=== PATIENT | female | born 1950 | race Caucasian/White ===

== ENCOUNTER 2016-05-07 19:12 | Inpatient (IN) | payer OTHER ==
[~2016-05-07] VITALS: Ht 157.5 cm; Wt 100.0 kg
[2016-05-07 20:19] LABS: BASOPHILS % 0.4 % (0.0-2.0); EOSINOPHILS # 0.2 10^3/ul (0.0-0.5); EOSINOPHILS % 3.3 % (0.0-7.0); HEMATOCRIT 38.5 % (37.0-47.0); HEMOGLOBIN 12.8 g/dl (12.0-16.0); LYMPHOCYTES # 1.9 10^3/ul (0.8-2.9); LYMPHOCYTES % 27.8 % (15.0-51.0); MEAN CORPUSCULAR HEMOGLOBIN 27.7 pg (29.0-33.0); MEAN CORPUSCULAR HGB CONC 33.4 g/dl (32.0-37.0); MEAN CORPUSCULAR VOLUME 82.9 fl (82.0-101.0); MONOCYTE # 0.4 10^3/ul (0.3-0.9); MONOCYTES % 6.3 % (0.0-11.0); NEUTROPHIL # 4.2 10^3/ul (1.6-7.5); NEUTROPHILS % 62.2 % (39.0-77.0); PLATELET COUNT 249 10^3/UL (140-440); RED BLOOD COUNT 4.64 10^6/ul (4.20-5.40); RED CELL DISTRIBUTION WIDTH 13.3 % (11.5-14.5); UNCORRECTED WBC 6.8 10^3/ul (4.8-10.8); WHITE BLOOD COUNT 6.8 10^3/ul (4.8-10.8)
[2016-05-07 20:20] LABS: CONDITION 1
[2016-05-07] MEDS ORDERED: METF1000 PO (20:24)
[2016-05-07] MEDS ORDERED: GLIP-95 PO (20:24)
[2016-05-07] MEDS ORDERED: LANT3I SC (20:25)
[2016-05-07] MEDS ORDERED: ATOR10TA65 PO (20:25)
[2016-05-07] MEDS ORDERED: ASPI-664 PO (20:25)
--- NOTE | 2016-05-07 20:29 | ERA ---
ER Documentation Chief Complaint Date/Time DATE: 05/07/16 TIME: 20:25 Chief Complaint Dizziness HPI The patient is a 66-year-old female, presenting to the ER because of dizziness, headache, left eye pain and pressure for 11 days. She was seen at [place] [facility] 8 days ago when she had a normal head CT. She was seen again today at [place] [facility] and had another normal head CT. She was sent to [facility] ER for further evaluation because of persistent headache. He complains of triple vision from the left eye where she had dizziness. She denies facial pain, neck pain, chest pain, dyspnea, abdominal pain, vomiting, diarrhea, constipation. She does not smoke does not drink Past medical history: Diabetes mellitus Past medical history: Ventral herniorrhaphy, abdominoplasty ROS All systems reviewed and are negative except as per history of present illness. Medications Home Meds Reported Medications Aspirin* (Aspirin* EC) 81 Mg Tablet.dr, 81 MG PO DAILY, TAB 05/07/16 Atorvastatin Calcium (Atorvastatin Calcium) 10 Mg Tablet, 10 MG PO QHS, #30 TAB 05/07/16 Insulin Glargine* (Lantus*) 100 Unit/Ml Soln, 30 UNIT SC QAM, #1 VIAL 05/07/16 Glipizide* (Glipizide*) 10 Mg Tablet, 10 MG PO AC BREAKFAST DINNER, TAB 05/07/16 Metformin Hcl* (Metformin Hcl*) 1,000 Mg Tablet, 1000 MG PO WITH BREAKFAST, #30 TAB 05/07/16 Allergies Allergies: Coded Allergies: No Known Allergy (Unverified , 05/07/16) PMhx/Soc History of Surgery: Yes (umbilical hernia repair) Anesthesia Reaction: No Hx Neurological Disorder: No Hx Respiratory Disorders: No Hx Cardiac Disorders: No Hx Psychiatric Problems: No Hx Alcohol Use: No Hx Substance Use: No Hx Tobacco Use: No Smoking Status: Never smoker Physical Exam Vitals Vital Signs Date Time Temp Pulse Resp B/P Pulse Ox O2 Delivery O2 Flow Rate FiO2 05/07/16 19:29 69 13 124/57 100 Room Air 05/07/16 19:26 98.2 74 17 122/57 95 Physical Exam Const: No acute distress. Head: Atraumatic. Eyes: Normal Conjunctiva. Pupils are equally round and reactive to light , no eye entrapment ENT: Normal External Ears, Nose and Mouth. Neck: Full range of motion. No meningismus. Resp: Clear to auscultation bilaterally. Cardio: Regular rate and rhythm, no murmurs. Abd: Soft, non distended, normal bowel sounds, non tender. Skin: No petechiae or rashes. Back: No midline or flank tenderness. Ext: No cyanosis, or edema. Neur: Awake and alert. No focal deficit Psych: Normal Mood and Affect. Result Diagram: 05/07/161999 Results 24 hrs Laboratory Tests Test 05/07/16 20:00 Basophils # 0.010^3/ul Basophils % 0.4% Blood Morphology Comment Eosinophils # 0.210^3/ul Eosinophils % 3.3% Hematocrit 38.5% Hemoglobin 12.8g/dl Lymphocytes # 1.910^3/ul Lymphocytes % 27.8% Mean Corpuscular Hemoglobin 27.7pg Mean Corpuscular Hemoglobin Concent 33.4g/dl Mean Corpuscular Volume 82.9fl Mean Platelet Volume 10.0fl Monocytes # 0.410^3/ul Monocytes % 6.3% Neutrophils # 4.210^3/ul Neutrophils % 62.2% Nucleated Red Blood Cells # 0.010^3/ul Nucleated Red Blood Cells % 0.0/100WBC Platelet Count 39634^3/UL Red Blood Count 4.6410^6/ul Red Cell Distribution Width 13.3% White Blood Count 6.810^3/ul Procedures/MDM MEDICAL MAKING DECISION: The patient is a 66-year-old female, presenting to the ER because of intermittent dizziness associated with blurred vision. She will be admitted for further evaluation, including MRI of the brain. The differential diagnoses considered include but are not limited to central causes such as cerebellar infarct, cerebellar hemorrhage, cerebellar tumor, acoustic neuroma, peripheral causes such as benign positional vertigo, labyrinthitis, medication, Meniere's disease. Departure Diagnosis: Primary Impression: Dizziness Condition: Stable Comments I discussed the findings with the patient. I discussed the patient with the on- call hospitalist Dr. Mcduffie who was made aware of the lab, the treatment, the patient condition. The patient is admitted to the telemetry The patient's blood pressure was elevated (>120/80) but appears stable without evidence of hypertension emergency or urgency. The patient was counseled about the risks of hypertension and urged to pursue outpatient monitoring and therapy within a week after discharge with their primary care physician. KODY WAHL MD May 07, 2016 20:29
[2016-05-07] MEDS ORDERED: hydrALAzine 20 MG INJ IV PRN (20:30)
[2016-05-07] MEDS ORDERED: LORAZEPAM 2 MG INJ IV PRN (20:30)
[2016-05-07] MEDS ORDERED: ONDANSETRON 4 MG INJ IV PRN (20:30)
[2016-05-07] MEDS ORDERED: NITROGLYCERIN (SL) 0.4 MG TAB SL PRN (20:30)
[2016-05-07] MEDS ORDERED: NACL 0.9% 3 ML SYG IV SCH (20:30)
[2016-05-07 20:34] LABS: POTASSIUM 3.9 mmol/L (3.5-5.1)
[2016-05-07 20:37] LABS: CREATININE 0.59 mg/dl (0.44-1.00)
[2016-05-07] MEDS ORDERED: GLUCOSE GEL 15 GRAM TUBE BUCCAL PRN (21:00)
[2016-05-07] MEDS ORDERED: GLUCAGON 1 MG INJ IM PRN (21:00)
[2016-05-07] MEDS ORDERED: GLUCOSE GEL 15 GRAM TUBE PO PRN ×2 (21:00)
[2016-05-07] MEDS ORDERED: DEXTROSE 50% 50 ML SYRINGE IV PRN ×2 (21:00)
[2016-05-07 21:03] LABS: INR 0.91; PROTIME 12.2 Sec (12.2-14.2)
[2016-05-07 21:04] LABS: PARTIAL THROMBOPLASTIN TIME 28.4 Sec (25.0-35.0)
[2016-05-07 21:48] VITALS: PULSE 74
--- NOTE | 2016-05-07 22:05 | HP ---
Date/Time of Note Date/Time of Note DATE: 05/07/16 TIME: 21:29 Assessment/Plan VTE Prophylaxis VTE Prophylaxis Intervention: SCD's Assessment/Plan Assessment/Plan 66 yo female with past medical history type II DM, essential hypertension, who presents dizziness and diplopia. 1. Vertigo - CVA vs BPPV vs labyrinthitis vs other - will admit the patient to telemetry, fall risk precautions, neurovascular checks, MRI brain, MRA head/neck , TSH, vit b12/folate, ECHO, orthostatic vital signs, neuro c/s 2. Type II DM - uncontrolled - check Hgba1c, ISS, lantus, hold metformin/ glipizide 3. Essential Hypertension - hydralazine prn - new diagnosis - lisinopril if true hypertension 4. Dyslipidemia - continue with statin. 5. GI ppx - pepcid 6. DVT ppx - scds answered all of her questions. as per clinical course. this history and physical took greater then 45 minutes to complete HPI/ROS Admit Date/Time Admit Date/Time 05/07/2016, 9:29 pm Hx of Present Illness 66 yo female with past medical history type II DM, essential hypertension, who presents dizziness and diplopia. 8 days ago, she had gone to [facility] , she had similar episode, had a CT scan of brain that was negative. Labs at that time were negative. Subsequently, the patient's symptoms did not resolve, has orthostatic changes, headache, blurriness in vision, double vision, nausea with 3 episodes NBNB vomitus, constipation, and shortness of breath. Otherwise denies any palpitations, chest pain, syncopal episodes, no other constitutional symptoms. Patient was transferred here to [facility] for insurances. [facility]: Labs: Gluc: 332 CT brain: no acute intracranial hemorrhage, or other findings. ROS 14 point review of systems completed, please refer to HPI for any positive findings PMH/Family/Social Past Medical History Medical History: diabetes, hypertension Past Surgical History hernia repair Family History Significant Family History: hypertension (mother) Social History Alcohol Use: none Smoking Status: Never smoker Drug Use: none Exam/Review of Systems Vital Signs Vitals Vital Signs Date Time Temp Pulse Resp B/P Pulse Ox O2 Delivery O2 Flow Rate FiO2 05/07/16 21:00 72 16 118/54 94 Room Air 05/07/16 19:26 98.2 Exam Exam Gen Jacques: moderate distress 2/2 dizziness, AAOx4 HEENT: NC/AT, PERRLA, EOMI, no pharyngeal erythema, no tonsillar exudates, no lymphadenopathy, no JVD, no carotid bruits NECK: supple, no thyromegaly THORAX: symmetrical, no obvious deformities CV: S1S2, RRR, no M/G/R Lungs: CTAB no W/C/R/R Abd: soft, NT/ND, +BS, no rebound, no guarding, neg HSM EXT: no edema, no ecchymosis, no clubbing, FROM Neuro: CN II-XII grossly intact, cannot assess rhombergs, no nystagmus seen Psych: anxious Skin: C/D/I Labs Result Diagram: 05/07/16199905/07/161999 Medications Medications Current Medications Lorazepam (Ativan) 0.5 mg Q6H PRN IV ANXIETY; Start 05/07/16 at 20:30 Ondansetron HCl (Zofran Inj) 4 mg Q6H PRN IV NAUSEA AND/OR VOMITING; Start at 20:30 Aspirin (Aspirin) 81 mg DAILY PO ; Start 05/08/16 at 09:00 Nitroglycerin (Nitroglycerin (Sl Tab) 0.4 Mg) 1 tab Q5M PRN SL CHEST PAIN; Start 05/07/16 at 20:30 Acetaminophen (Tylenol Tab) 650 mg Q6H PRN PO PAIN LEVEL 1-3 OR FEVER; Start at 20:30 Morphine Sulfate (morphine) 2 mg Q4H PRN IV PAIN LEVEL 7-10; Start 05/07/16 at 20:30 Docusate Sodium (Colace) 100 mg Q12H PRN PO CONSTIPATION; Start 05/07/16 at 20: 30 Famotidine (Pepcid) 20 mg Q12 PO ; Start 05/07/16 at 21:00 Hydralazine HCl (Apresoline) 10 mg Q6H PRN IV sbp > 160; Start 05/07/16 at 20: 30 Atorvastatin Calcium (Lipitor) 10 mg QHS PO ; Start 05/07/16 at 21:00 Insulin Glargine (Lantus) 30 unit QAM SC ; Start 05/08/16 at 09:00 Diagnostic Test (Pha) (Accucheck) 1 ea 02 XX ; Start 05/08/16 at 02:00 Miscellaneous Information 1 ea NOTE XX ; Start 05/07/16 at 21:00 Glucose (Glutose) 15 gm Q15M PRN PO DECREASED GLUCOSE; Start 05/07/16 at 21:00 Glucose (Glutose) 22.5 gm Q15M PRN PO DECREASED GLUCOSE; Start 05/07/16 at 21: 00 Dextrose (D50w Syringe) 25 ml Q15M PRN IV DECREASED GLUCOSE; Start 05/07/16 at 21:00 Dextrose (D50w Syringe) 50 ml Q15M PRN IV DECREASED GLUCOSE; Start 05/07/16 at 21:00 Glucagon (Glucagen) 1 mg Q15M PRN IM DECREASED GLUCOSE; Start 05/07/16 at 21:00 Glucose (Glutose) 15 gm Q15M PRN BUCCAL DECREASED GLUCOSE; Start 05/07/16 at 21 :00 SHONDA ESPINOSA MD May 07, 2016 21:52
[2016-05-07 22:15] VITALS: BP 129/54; PULSE 69; RESP 18
[2016-05-07] MEDS: ATORVASTATIN 10 MG TAB PO SCH (22:17)
[2016-05-07] MEDS: FAMOTIDINE 20 MG TAB PO SCH (22:17)
[2016-05-07] MEDS: morphine 2 MG INJ IV PRN (22:19)
[2016-05-07 22:39] LABS: CREATINE KINASE 48 IU/L (23-200)
[2016-05-07 22:40] LABS: CHOL/HDL RATIO 4.1 RATIO; MAGNESIUM 1.8 mg/dl (1.7-2.5)
[2016-05-07 22:47] VITALS: Ht 157.5 cm; Wt 100.0 kg
[2016-05-07 22:48] LABS: CK-MB 0.61 ng/ml (0.0-2.4)
[2016-05-07 22:54] LABS: TROPONIN-I < 0.012 ng/ml (0.00-0.12)
[2016-05-07 23:11] LABS: THYROID STIMULATING HORMONE 0.471 MIU/L (0.465-4.680)
[2016-05-07 23:17] VITALS: BP 125/54; RESP 16
[2016-05-07] MEDS: INSULIN ASPART [NOVOLOG] 3 ML PEN SC SCH (23:42)
[2016-05-08] VITALS (12 sets, daily range): BP systolic 120–166; BP diastolic 57–75; PULSE 63–90; RESP 16–21
[2016-05-08] MEDS ORDERED: TRAM50TA2 PO (00:03)
[2016-05-08] MEDS: ACCUCHECK AT 2AM (Patients on SS coverage) XX SCH ×2 (02:10→21:20)
[2016-05-08 02:45] LABS: CREATINE KINASE 32 IU/L (23-200)
[2016-05-08 03:14] LABS: CK-MB 0.57 ng/ml (0.0-2.4); TROPONIN-I < 0.012 ng/ml (0.00-0.12)
[2016-05-08 07:08] LABS: BASOPHILS % 0.4 % (0.0-2.0); EOSINOPHILS # 0.2 10^3/ul (0.0-0.5); EOSINOPHILS % 3.5 % (0.0-7.0); HEMATOCRIT 37.1 % (37.0-47.0); HEMOGLOBIN 12.5 g/dl (12.0-16.0); LYMPHOCYTES # 1.8 10^3/ul (0.8-2.9); LYMPHOCYTES % 32.2 % (15.0-51.0); MEAN CORPUSCULAR HEMOGLOBIN 27.7 pg (29.0-33.0); MEAN CORPUSCULAR HGB CONC 33.7 g/dl (32.0-37.0); MEAN CORPUSCULAR VOLUME 82.3 fl (82.0-101.0); MEAN PLATELET VOLUME 9.8 fl (7.4-10.4); MONOCYTE # 0.4 10^3/ul (0.3-0.9); MONOCYTES % 6.7 % (0.0-11.0); NEUTROPHIL # 3.2 10^3/ul (1.6-7.5); NEUTROPHILS % 57.2 % (39.0-77.0); PLATELET COUNT 246 10^3/UL (140-440); RED BLOOD COUNT 4.51 10^6/ul (4.20-5.40); RED CELL DISTRIBUTION WIDTH 12.8 % (11.5-14.5); UNCORRECTED WBC 5.6 10^3/ul (4.8-10.8); WHITE BLOOD COUNT 5.6 10^3/ul (4.8-10.8)
[2016-05-08 07:09] LABS: POTASSIUM 4.1 mmol/L (3.5-5.1)
[2016-05-08 07:11] LABS: CREATININE 0.62 mg/dl (0.44-1.00)
[2016-05-08 07:12] LABS: CALCIUM 9.1 mg/dl (8.4-10.2)
[2016-05-08] MEDS ORDERED: MAGNESIUM SULFATE 2 GM/50 ML 50 ML IVPB ONE (07:30)
[2016-05-08 07:39] LABS: CONDITION 1
[2016-05-08] MEDS: ACETAMINOPHEN 325 MG TAB PO PRN ×2 (07:56→21:18)
[2016-05-08] MEDS: ASPIRIN 81 MG TAB PO SCH (08:53)
[2016-05-08] MEDS: FAMOTIDINE 20 MG TAB PO SCH ×2 (08:53→21:18)
[2016-05-08] MEDS: INSULIN GLARGINE [LANtus] 3 ML PEN SC SCH (08:55)
[2016-05-08] MEDS: INSULIN ASPART [NOVOLOG] 3 ML PEN SC SCH ×8 (08:56→21:00)
[2016-05-08] MEDS ORDERED: INSULIN GLARGINE [LANtus] 3 ML PEN SC SCH (09:00)
--- NOTE | 2016-05-08 11:35 | CONS ---
Date/Time of Note Date/Time of Note DATE: 05/08/16 TIME: 11:26 Assessment/Plan Assessment/Plan Chief Complaint/Hosp Course 66 year old female with history of uncontrolled diabetes, hypertension presenting with vertigo, blurred vision admitted for further work up. CTH on admission negative. Recommendations: -MRI Brain and MRA Head/Neck without contrast pending to evaluate for possible vascular event -suspect vestibular neuronitis -initiate meclizine 12.5 mg TID standing -tylenol prn headaches, if no improvement, trial of Toradol -ECHO pending -orthostatic vitals to be checked -check HBA1C, Lipid panel for optimization of risk factors -insulin being adjusted for more optimal control of diabetes -will continue to follow Problems: Consultation Date/Type/Reason Admit Date/Time 05/07/2016, 9:29 pm Date of Consultation: May 08, 2016 Type of Consultation: Neurology Reason for Consultation vertigo, blurred vision r/o CVA Referring Provider: SHONDA ESPINOSA MD Hx of Present Illness 66 year old female with PMHx of Type II DM, HTN presents with vertigo and blurred vision from left visual field with headache. Her symptoms began 8 days ago, she was evaluated at [place] [facility], CTH: negative and received blood work was discharged home. Her symptoms persisted, has episodes of vomiting and was transferred here for insurance purposes for further evaluation. She denies a previous history of stroke. headache vertigo blurred vision Past Medical History Medical History: diabetes, hypertension Past Surgical History Past Surgical Hx: no surgical history Family History Significant Family History: no pertinent family hx Social History Alcohol Use: none Smoking Status: Never smoker Drug Use: none Exam/Review of Systems Vital Signs Vitals Vital Signs Date Time Temp Pulse Resp B/P Pulse Ox O2 Delivery O2 Flow Rate FiO2 05/08/16 08:02 65 05/08/16 07:05 98.7 20 127/58 96 05/07/16 22:15 Room Air Intake and Output 05/07/16 05/07/16 05/08/16 15:00 23:00 07:00 Intake Total 480 ml Balance 480 ml Exam Constitutional: alert, distress, oriented Psych: no complaints Head: normocephalic, other Eyes: EOMI, PERRL, other (left field cut, poor cooperation) ENMT: other (tongue is swollen with abrasions ) Respiratory: normal air movement Neurological: other (visual bernard- possible left field cut, no significant facial asymmetry palate upgoing uvula tongue midline, no focal weakness in arms or legs, lifts both LE anti-gravity, no ataxia) Results Result Diagram: 05/08/16 0559 05/08/16 0559 Results 24 hrs Laboratory Tests Test 05/07/16 20:00 05/07/16 22:16 05/07/16 22:18 05/08/16 02:08 Activated Partial Thromboplast Time 28.4 Anion Gap 14 Basophils # 0.0 Basophils % 0.4 Blood Morphology Comment Blood Urea Nitrogen 14 Calcium Level 9.0 Carbon Dioxide Level 31 Chloride Level 98 Creatinine 0.59 Eosinophils # 0.2 Eosinophils % 3.3 Glucose Level 235 H Hematocrit 38.5 Hemoglobin 12.8 INR International Normalized Ratio 0.91 Lymphocytes # 1.9 Lymphocytes % 27.8 Mean Corpuscular Hemoglobin 27.7 L Mean Corpuscular Hemoglobin Concent 33.4 Mean Corpuscular Volume 82.9 Mean Platelet Volume 10.0 Monocytes # 0.4 Monocytes % 6.3 Neutrophils # 4.2 Neutrophils % 62.2 Nucleated Red Blood Cells # 0.0 Nucleated Red Blood Cells % 0.0 Platelet Count 249 Potassium Level 3.9 Prothrombin Time 12.2 Prothrombin Time Ratio 1.0 Red Blood Count 4.64 Red Cell Distribution Width 13.3 Sodium Level 139 White Blood Count 6.8 Bedside Glucose 273 H 308 H Cholesterol Level 150 Cholesterol/HDL Ratio 4.1 Creatine Kinase 48 Creatine Kinase Index 1.3 Creatinine Kinase MB (Mass) 0.61 HDL Cholesterol 36 Hemoglobin A1c 9.9 H LDL Cholesterol, Calculated 64 Magnesium Level 1.8 Thyroid Stimulating Hormone (TSH) 0.471 Triglycerides Level 249 H Troponin I < 0.012 Test 05/08/16 02:21 05/08/16 05:59 05/08/16 07:53 Creatine Kinase 32 Creatine Kinase Index 1.8 Creatinine Kinase MB (Mass) 0.57 Troponin I < 0.012 Anion Gap 13 Basophils # 0.0 Basophils % 0.4 Blood Morphology Comment Blood Urea Nitrogen 14 Calcium Level 9.1 Carbon Dioxide Level 31 Chloride Level 99 Creatinine 0.62 Eosinophils # 0.2 Eosinophils % 3.5 Glucose Level 234 H Hematocrit 37.1 Hemoglobin 12.5 Lymphocytes # 1.8 Lymphocytes % 32.2 Mean Corpuscular Hemoglobin 27.7 L Mean Corpuscular Hemoglobin Concent 33.7 Mean Corpuscular Volume 82.3 Mean Platelet Volume 9.8 Monocytes # 0.4 Monocytes % 6.7 Neutrophils # 3.2 Neutrophils % 57.2 Nucleated Red Blood Cells # 0.0 Nucleated Red Blood Cells % 0.0 Platelet Count 246 Potassium Level 4.1 Red Blood Count 4.51 Red Cell Distribution Width 12.8 Sodium Level 139 White Blood Count 5.6 Bedside Glucose 233 H Medications Medications Current Medications Lorazepam (Ativan) 0.5 mg Q6H PRN IV ANXIETY; Start 05/07/16 at 20:30 Ondansetron HCl (Zofran Inj) 4 mg Q6H PRN IV NAUSEA AND/OR VOMITING; Start at 20:30 Aspirin (Aspirin) 81 mg DAILY PO Last administered on 05/08/16 08:53; Admin Dose 81 MG; Start 05/08/16 at 09:00 Nitroglycerin (Nitroglycerin (Sl Tab) 0.4 Mg) 1 tab Q5M PRN SL CHEST PAIN; Start 05/07/16 at 20:30 Acetaminophen (Tylenol Tab) 650 mg Q6H PRN PO PAIN LEVEL 1-3 OR FEVER Last administered on 05/08/16 07:56; Admin Dose 650 MG; Start 05/07/16 at 20:30 Morphine Sulfate (morphine) 2 mg Q4H PRN IV PAIN LEVEL 7-10 Last administered on 05/07/16 22:19; Admin Dose 2 MG; Start 05/07/16 at 20:30 Docusate Sodium (Colace) 100 mg Q12H PRN PO CONSTIPATION; Start 05/07/16 at 20: 30 Famotidine (Pepcid) 20 mg Q12 PO Last administered on 05/08/16 08:53; Admin Dose 20 MG; Start 05/07/16 at 21:00 Hydralazine HCl (Apresoline) 10 mg Q6H PRN IV sbp > 160 Last administered on 04:56; Admin Dose 10 MG; Start 05/07/16 at 20:30 Atorvastatin Calcium (Lipitor) 10 mg QHS PO Last administered on 05/07/16 22: 17; Admin Dose 10 MG; Start 05/07/16 at 21:00 Insulin Glargine (Lantus) 30 unit QAM SC Last administered on 05/08/16 08:55; Admin Dose 30 UNIT; Start 05/08/16 at 09:00 Diagnostic Test (Pha) (Accucheck) 1 ea 02 XX Last administered on 05/08/16t 02: 10; Admin Dose 1 EA; Start 05/08/16 at 02:00 Miscellaneous Information 1 ea NOTE XX ; Start 05/07/16 at 21:00 Glucose (Glutose) 15 gm Q15M PRN PO DECREASED GLUCOSE; Start 05/07/16 at 21:00 Glucose (Glutose) 22.5 gm Q15M PRN PO DECREASED GLUCOSE; Start 05/07/16 at 21: 00 Dextrose (D50w Syringe) 25 ml Q15M PRN IV DECREASED GLUCOSE; Start 05/07/16 at 21:00 Dextrose (D50w Syringe) 50 ml Q15M PRN IV DECREASED GLUCOSE; Start 05/07/16 at 21:00 Glucagon (Glucagen) 1 mg Q15M PRN IM DECREASED GLUCOSE; Start 05/07/16 at 21:00 Glucose (Glutose) 15 gm Q15M PRN BUCCAL DECREASED GLUCOSE; Start 05/07/16 at 21 :00 Tramadol HCl (Ultram) 50 mg Q6H PRN PO PAIN; Start 05/08/16 at 00:30 SHAE CASILLAS MD May 08, 2016 11:35
--- NOTE | 2016-05-08 12:55 | PN ---
Date/Time of Note Date/Time of Note DATE: 05/08/16 TIME: 12:53 Assessment/Plan VTE Prophylaxis VTE Prophylaxis Intervention: SCD's Lines/Catheters Urinary Cath still in place: No Assessment/Plan Assessment/Plan 1. Vertigo and blurring/pain on left eye, awaiting for MRI, on meclizine prn 2. DM, on insulins 3. Dyslipidemia, on statin 4. Hypertension, stable Subjective 24 Hr Interval Summary Free Text/Dictation dizzy and spinning with left eye pain, blurring Exam/Review of Systems Vital Signs Vitals Vital Signs Date Time Temp Pulse Resp B/P Pulse Ox O2 Delivery O2 Flow Rate FiO2 05/08/16 12:01 88 05/08/16 11:47 98.4 20 120/57 97 05/07/16 22:15 Room Air Intake and Output 05/07/16 05/07/16 05/08/16 14:59 22:59 06:59 Intake Total 480 ml Balance 480 ml Exam Constitutional: alert, oriented, well developed Psych: nl mood/affect, no complaints Head: atraumatic, normocephalic Eyes: EOMI, PERRL, nl conjunctiva, nl lids, nl sclera ENMT: mucosa pink and moist, nl external ears & nose, nl lips & teeth, nl nasal mucosa & septum Neck: non-tender, supple Respiratory: clear to auscultation, normal air movement, No congested cough, No crackles/rales, No diminished breath sounds, No intercostal retraction, No labored breathing, No respirations, No tactile fremitus, No wheezing Cardiovascular: nl pulses, regular rate and rhythm, No S3, No S4, No bruits, No diastolic murmur, No edema, No gallop, No irregular rhythm, No jugular venous distention (JVD), No murmurs/extra sounds, No rub, No systolic murmur Gastrointestinal: nl liver, spleen, non-tender, soft, No ascites, No bowel sounds, No distended, No firm, No hepatomegaly, No mass , No rebound or guarding, No splenomegaly, No surgical scars, No tender Musculoskeletal: nl extremities to inspection Extremities: normal pulses, No calf tenderness, No clubbing, No cyanosis, No edema, No palpable cord, No pitting pedal edema, No tenderness Neurological: CONTROL SYSTEM MANAGER II-XII intact, nl mental status, nl speech, nl strength Skin: nl turgor, rash or lesions Lymph: nl lymph nodes Results Result Diagram: 05/08/16 0559 05/08/16 0559 Results 24 hrs Laboratory Tests Test 05/07/16 20:00 05/07/16 22:16 05/07/16 22:18 05/08/16 02:08 Activated Partial Thromboplast Time 28.4 Anion Gap 14 Basophils # 0.0 Basophils % 0.4 Blood Morphology Comment Blood Urea Nitrogen 14 Calcium Level 9.0 Carbon Dioxide Level 31 Chloride Level 98 Creatinine 0.59 Eosinophils # 0.2 Eosinophils % 3.3 Glucose Level 235 H Hematocrit 38.5 Hemoglobin 12.8 INR International Normalized Ratio 0.91 Lymphocytes # 1.9 Lymphocytes % 27.8 Mean Corpuscular Hemoglobin 27.7 L Mean Corpuscular Hemoglobin Concent 33.4 Mean Corpuscular Volume 82.9 Mean Platelet Volume 10.0 Monocytes # 0.4 Monocytes % 6.3 Neutrophils # 4.2 Neutrophils % 62.2 Nucleated Red Blood Cells # 0.0 Nucleated Red Blood Cells % 0.0 Platelet Count 249 Potassium Level 3.9 Prothrombin Time 12.2 Prothrombin Time Ratio 1.0 Red Blood Count 4.64 Red Cell Distribution Width 13.3 Sodium Level 139 White Blood Count 6.8 Bedside Glucose 273 H 308 H Cholesterol Level 150 Cholesterol/HDL Ratio 4.1 Creatine Kinase 48 Creatine Kinase Index 1.3 Creatinine Kinase MB (Mass) 0.61 HDL Cholesterol 36 Hemoglobin A1c 9.9 H LDL Cholesterol, Calculated 64 Magnesium Level 1.8 Thyroid Stimulating Hormone (TSH) 0.471 Triglycerides Level 249 H Troponin I < 0.012 Test 05/08/16 02:21 05/08/16 05:59 05/08/16 07:53 05/08/16 12:04 Creatine Kinase 32 Creatine Kinase Index 1.8 Creatinine Kinase MB (Mass) 0.57 Troponin I < 0.012 Anion Gap 13 Basophils # 0.0 Basophils % 0.4 Blood Morphology Comment Blood Urea Nitrogen 14 Calcium Level 9.1 Carbon Dioxide Level 31 Chloride Level 99 Creatinine 0.62 Eosinophils # 0.2 Eosinophils % 3.5 Glucose Level 234 H Hematocrit 37.1 Hemoglobin 12.5 Lymphocytes # 1.8 Lymphocytes % 32.2 Mean Corpuscular Hemoglobin 27.7 L Mean Corpuscular Hemoglobin Concent 33.7 Mean Corpuscular Volume 82.3 Mean Platelet Volume 9.8 Monocytes # 0.4 Monocytes % 6.7 Neutrophils # 3.2 Neutrophils % 57.2 Nucleated Red Blood Cells # 0.0 Nucleated Red Blood Cells % 0.0 Platelet Count 246 Potassium Level 4.1 Red Blood Count 4.51 Red Cell Distribution Width 12.8 Sodium Level 139 White Blood Count 5.6 Bedside Glucose 233 H 261 H Medications Medications Current Medications Lorazepam (Ativan) 0.5 mg Q6H PRN IV ANXIETY; Start 05/07/16 at 20:30 Ondansetron HCl (Zofran Inj) 4 mg Q6H PRN IV NAUSEA AND/OR VOMITING; Start at 20:30 Aspirin (Aspirin) 81 mg DAILY PO Last administered on 05/08/16 08:53; Admin Dose 81 MG; Start 05/08/16 at 09:00 Nitroglycerin (Nitroglycerin (Sl Tab) 0.4 Mg) 1 tab Q5M PRN SL CHEST PAIN; Start 05/07/16 at 20:30 Acetaminophen (Tylenol Tab) 650 mg Q6H PRN PO PAIN LEVEL 1-3 OR FEVER Last administered on 05/08/16 07:56; Admin Dose 650 MG; Start 05/07/16 at 20:30 Morphine Sulfate (morphine) 2 mg Q4H PRN IV PAIN LEVEL 7-10 Last administered on 05/07/16 22:19; Admin Dose 2 MG; Start 05/07/16 at 20:30 Docusate Sodium (Colace) 100 mg Q12H PRN PO CONSTIPATION; Start 05/07/16 at 20: 30 Famotidine (Pepcid) 20 mg Q12 PO Last administered on 05/08/16 08:53; Admin Dose 20 MG; Start 05/07/16 at 21:00 Hydralazine HCl (Apresoline) 10 mg Q6H PRN IV sbp > 160 Last administered on 04:56; Admin Dose 10 MG; Start 05/07/16 at 20:30 Atorvastatin Calcium (Lipitor) 10 mg QHS PO Last administered on 05/07/16 22: 17; Admin Dose 10 MG; Start 05/07/16 at 21:00 Insulin Glargine (Lantus) 30 unit QAM SC Last administered on 05/08/16 08:55; Admin Dose 30 UNIT; Start 05/08/16 at 09:00 Diagnostic Test (Pha) (Accucheck) 1 ea 02 XX Last administered on 05/08/16 02: 10; Admin Dose 1 EA; Start 05/08/16 at 02:00 Miscellaneous Information 1 ea NOTE XX ; Start 05/07/16 at 21:00 Glucose (Glutose) 15 gm Q15M PRN PO DECREASED GLUCOSE; Start 05/07/16 at 21:00 Glucose (Glutose) 22.5 gm Q15M PRN PO DECREASED GLUCOSE; Start 05/07/16 at 21: 00 Dextrose (D50w Syringe) 25 ml Q15M PRN IV DECREASED GLUCOSE; Start 05/07/16 at 21:00 Dextrose (D50w Syringe) 50 ml Q15M PRN IV DECREASED GLUCOSE; Start 05/07/16 at 21:00 Glucagon (Glucagen) 1 mg Q15M PRN IM DECREASED GLUCOSE; Start 05/07/16 at 21:00 Glucose (Glutose) 15 gm Q15M PRN BUCCAL DECREASED GLUCOSE; Start 05/07/16 at 21 :00 Tramadol HCl (Ultram) 50 mg Q6H PRN PO PAIN; Start 05/08/16 at 00:30 Meclizine HCl (Antivert) 12.5 mg TID PO ; Start 05/08/16 at 13:00 WILBERTO HERNANDEZ MD May 08, 2016 12:55
[2016-05-08] MEDS: MECLIZINE 12.5 MG TAB PO SCH ×2 (13:49→21:18)
--- NOTE | 2016-05-08 17:09 | RADRPT ---
PROCEDURE: MRA Brain. CLINICAL INDICATION: Vertigo and diplopia. TECHNIQUE: An MRA of the brain was performed on a GE short bore high-definition 3 venkatesh scanner ut ilizing 3-D [id number] MR angiography technique. Source and MIP images were reviewed. COMPARISON: None FINDINGS: There is mild luminal irregularity within the internal carotid arteries, most pronounced in the cave rnous portions though no hemodynamically significant stenosis is evident. Some this may be exaggera nayeli by patient motion artifact. The middle cerebral and anterior cerebral arteries are patent and g rossly normal in appearance. The vertebral arteries, basilar artery, and superior cerebellar arteri es are visualized and normal in appearance. The left vertebral artery is dominant. The posterior c erebral arteries are patent and normal in appearance bilaterally. No aneurysms are detected. IMPRESSION: 1. Mild luminal irregularity of the internal carotid arteries bilaterally with no hemodynamically s ignificant stenosis identified. 2. Otherwise, grossly normal MRA of the brain. RPTAT: PP .Chayo Boston MD, MD Date Time Electronically viewed and signed by .Chayo Boston MD, on 05/08/2016 17:09 .H/
--- NOTE | 2016-05-08 17:26 | RADRPT ---
PROCEDURE: MRA Neck without contrast. CLINICAL INDICATION: Headache, vertigo, diplopia TECHNIQUE: An MRA of the major cervical arteries was performed on the 3.0 Minerva scanner using axia l 2-D and 3-D [id number] sequences. Source and images were reviewed. COMPARISON: None available FINDINGS: There are motion related artifacts somewhat limiting evaluation, without occlusion or hemodynamicall y significant stenosis identified along the bilateral common carotid arteries, bilateral carotid bul bs and internal carotid arteries, or bilateral vertebral arteries. No dissection is seen. IMPRESSION: Somewhat limited evaluation due to motion, without occlusion or hemodynamically significant stenosis identified. RPTAT: VV .Allen Sorenson MD, MD Date Time Electronically viewed and signed by .Allen Sorenson MD, on 05/08/2016 17:26 .O/
--- NOTE | 2016-05-08 17:41 | RADRPT ---
PROCEDURE: MRI Brain without contrast. CLINICAL INDICATION: Headache, vertigo, diplopia TECHNIQUE: Multiplanar MRI of the brain without contrast was performed on a 3.0 T scanner with the following sequences obtained: T1-weighted, T2-weighted/FLAIR, diffusion weighted (with ADC map), GR E. COMPARISON: None available FINDINGS: There is increased T2-weighted FLAIR signal intensity in the left occipital cortex without significa nt restricted diffusion. No intracranial hemorrhage / blood degradation products are identified. No extra-axial fluid collection is seen. There is no significant mass effect. No midline shift is identified. The ventricles and sulci are within normal limits for size and configuration. Mild areas of increased T2 / FLAIR signal intensity are present in the periventricular and deep whit e matter, nonspecific but likely related to chronic small vessel ischemic changes. Flow voids are identified in the proximal intracranial arteries and dural sinuses suggesting patency . The mastoid air cells and paranasal sinuses are grossly clear. IMPRESSION: 1. Increased T2-weighted FLAIR signal intensity in the left occipital cortex without significant re stricted diffusion. Exact etiology is unclear. Considerations include subacute ischemic changes, p ossibly focal cerebritis, resolving postictal changes. 2. No intracranial hemorrhage, or midline shift. 3. Mild chronic small vessel ischemic changes. Results called to Chayo Mccarthy RN at 05:35 p.m., 05/08/2016. RPTAT: VV .Allen Sorenson MD, MD Date Time Electronically viewed and signed by .Allen Sorenson MD, on 05/08/2016 17:41 .O/
--- NOTE | 2016-05-08 17:48 | RADRPT ---
Echocardiogram Report Patient Name: AV GIL Gender: Female Date: 1950 Study Date: 08-May-2016 Application Operations Engineer: Artemio Barbosa RDCS Location: [facility] Ref. Physician: SHONDA ESPINOSA Quality: Good Procedures: Transthoracic echocardiogram with complete 2D, M-Mode, and doppler examination. Indications: Hypertension. 2D/M Mode Doppler Measurement Value Normal Ranges Measurement Value Normal Ranges LVIDd 2D 5.1 3.5 - 5.6 cm AV Peak Srinivasan 2.1 m/sec LVIDs 2D 3.0 2.1 - 4.1 cm AV Peak PG 17.0 mmHg LVPWd 2D 0.9 0.6 - 1.1 cm LVOT Peak Srinivasan 1.4 m/sec IVSd 2D 1.1 0.6 - 1.1 cm LVOT Peak PG 7.6 mmHg AoR Diam 2D 2.5 2.0 - 3.7 cm MV E Peak Srinivasan 0.8 m/sec EDV 2D 122.1 cm3 MV A Peak Srinivasan 0.9 m/sec ESV 2D 27.4 cm3 MV E/A 0.9 LA Dimen 2D 4.0 2.3 - 4.0 cm MV Decel Time 155 msec MV Decel Drew 5 MV E/A 0.9 TR Peak Srinivasan 2.1 m/sec TR Peak PG 18.1 mmHg RVSP 21.0 mmHg Findings Left Ventricle: Normal left ventricular systolic function. Normal left ventricular cavity size. Normal left ventricular wall thickness. Ejection fraction is visually estimated at 6065 %. Right Ventricle: Normal right ventricular size. Normal right ventricular systolic function. Left Atrium: Upper limit of normal left atrial size. Right Atrium: The right atrium is normal in size. Mitral Valve: Normal appearance and function of the mitral valve with trace physiologic regurgitation. Aortic Valve: Normal appearance of the aortic valve. No significant aortic stenosis or insufficiency. Tricuspid Valve: Normal appearance and function of the tricuspid valve with trace physiologic regurgitation. Estimated peak PA systolic pressure 21 mmHg. Pericardium: Normal pericardium with no significant pericardial effusion. Aorta: Normal aortic root. IVC: Normal size and normal respiratory collapse consistent with normal right atrial pressure. Conclusions 1.The left ventricle is normal in size and systolic function. 2.Estimated left ventricular ejection fraction of 60-65%. Electronically Signed By: Eliceo Varghese 08-May-2016 17:47:43 -0800 Patient Name: AV GIL Study Date: 08-May-[id number]
[2016-05-08] MEDS: ATORVASTATIN 10 MG TAB PO SCH (21:18)
[2016-05-09] VITALS (11 sets, daily range): BP systolic 129–166; BP diastolic 61–83; PULSE 68–84; RESP 16–20
[2016-05-09] MEDS ORDERED: ACCUCHECK XX SCH (02:00)
[2016-05-09] MEDS: INSULIN ASPART [NOVOLOG] 3 ML PEN SC SCH ×7 (07:52→21:55)
[2016-05-09] MEDS: MECLIZINE 12.5 MG TAB PO SCH ×3 (08:28→20:11)
[2016-05-09] MEDS: ASPIRIN 81 MG TAB PO SCH (08:28)
[2016-05-09] MEDS: FAMOTIDINE 20 MG TAB PO SCH ×2 (08:28→20:11)
[2016-05-09] MEDS: traMADol 50 MG TAB PO PRN ×2 (08:29→20:11)
[2016-05-09] MEDS: INSULIN GLARGINE [LANtus] 3 ML PEN SC SCH (08:30)
[2016-05-09] MEDS: morphine 2 MG INJ IV PRN (10:24)
--- NOTE | 2016-05-09 13:14 | PN ---
Date/Time of Note Date/Time of Note DATE: 05/09/16 TIME: 13:04 Assessment/Plan VTE Prophylaxis VTE Prophylaxis Intervention: LMWH Lines/Catheters IV Catheter Type (from Nrs): Peripheral IV Urinary Cath still in place: No Assessment/Plan Assessment/Plan 1. Left sided headache with MRI abnormality at left occipital lobe, ? migraine headache, follow up with neurology, check ESR 2. DM, adjust insulins 3. Dyslipidemia, on statin 4. Hypertension, stable 5. Sicial worker consultation Subjective 24 Hr Interval Summary Free Text/Dictation left sided headache for two weeks or so, involving left temporal area, left eye , along with dizziness and blurring vision on left. Exam/Review of Systems Vital Signs Vitals Vital Signs Date Time Temp Pulse Resp B/P Pulse Ox O2 Delivery O2 Flow Rate FiO2 05/09/16 12:25 71 05/09/16 11:13 97.6 19 166/83 96 05/07/16 22:15 Room Air Intake and Output 05/08/16 05/08/16 05/09/16 15:00 23:00 07:00 Intake Total 800 ml Output Total 1000 ml Balance -200 ml Exam Constitutional: alert, oriented, well developed Head: atraumatic, normocephalic Eyes: EOMI, PERRL, nl conjunctiva, nl lids, nl sclera ENMT: nl external ears & nose, nl lips & teeth, nl nasal mucosa & septum Neck: non-tender, supple Respiratory: clear to auscultation, normal air movement, No congested cough, No crackles/rales, No diminished breath sounds, No intercostal retraction, No labored breathing, No respirations, No tactile fremitus, No wheezing Cardiovascular: nl pulses, regular rate and rhythm, No S3, No S4, No bruits, No diastolic murmur, No edema, No gallop, No irregular rhythm, No jugular venous distention (JVD), No murmurs/extra sounds, No rub, No systolic murmur Gastrointestinal: nl liver, spleen, non-tender, soft, No ascites, No bowel sounds, No distended, No firm, No hepatomegaly, No mass , No rebound or guarding, No splenomegaly, No surgical scars, No tender Musculoskeletal: nl extremities to inspection Extremities: normal pulses, No calf tenderness, No clubbing, No cyanosis, No edema, No palpable cord, No pitting pedal edema, No tenderness 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, nl mental status, nl speech, nl strength Skin: nl turgor, rash or lesions Lymph: nl lymph nodes Results Result Diagram: 05/08/16 0559 05/08/16 0559 Results 24 hrs Laboratory Tests Test 05/08/16 18:14 05/08/16 21:17 05/09/16 07:45 05/09/16 12:03 Bedside Glucose 227 H 126 174 220 Medications Medications Current Medications Lorazepam (Ativan) 0.5 mg Q6H PRN IV ANXIETY; Start 05/07/16 at 20:30 Ondansetron HCl (Zofran Inj) 4 mg Q6H PRN IV NAUSEA AND/OR VOMITING; Start at 20:30 Aspirin (Aspirin) 81 mg DAILY PO Last administered on 05/09/16 08:28; Admin Dose 81 MG; Start 05/08/16 at 09:00 Nitroglycerin (Nitroglycerin (Sl Tab) 0.4 Mg) 1 tab Q5M PRN SL CHEST PAIN; Start 05/07/16 at 20:30 Acetaminophen (Tylenol Tab) 650 mg Q6H PRN PO PAIN LEVEL 1-3 OR FEVER Last administered on 05/08/16 21:18; Admin Dose 650 MG; Start 05/07/16 at 20:30 Morphine Sulfate (morphine) 2 mg Q4H PRN IV PAIN LEVEL 7-10 Last administered on 05/09/16 10:24; Admin Dose 2 MG; Start 05/07/16 at 20:30 Docusate Sodium (Colace) 100 mg Q12H PRN PO CONSTIPATION; Start 05/07/16 at 20: 30 Famotidine (Pepcid) 20 mg Q12 PO Last administered on 05/09/16 08:28; Admin Dose 20 MG; Start 05/07/16 at 21:00 Hydralazine HCl (Apresoline) 10 mg Q6H PRN IV sbp > 160 Last administered on 04:56; Admin Dose 10 MG; Start 05/07/16 at 20:30 Atorvastatin Calcium (Lipitor) 10 mg QHS PO Last administered on 05/08/16 21: 18; Admin Dose 10 MG; Start 1/23/17 at 21:00 Insulin Glargine (Lantus) 30 unit QAM SC Last administered on 05/09/16 08:30; Admin Dose 30 UNIT; Start 05/08/16 at 09:00 Diagnostic Test (Pha) (Accucheck) 1 ea 02 XX Last administered on 05/08/16 02: 10; Admin Dose 1 EA; Start 05/08/16 at 02:00 Miscellaneous Information 1 ea NOTE XX ; Start 05/07/16 at 21:00 Glucose (Glutose) 15 gm Q15M PRN PO DECREASED GLUCOSE; Start 05/07/16 at 21:00 Glucose (Glutose) 22.5 gm Q15M PRN PO DECREASED GLUCOSE; Start 05/07/16 at 21: 00 Dextrose (D50w Syringe) 25 ml Q15M PRN IV DECREASED GLUCOSE; Start 05/07/16 at 21:00 Dextrose (D50w Syringe) 50 ml Q15M PRN IV DECREASED GLUCOSE; Start 05/07/16 at 21:00 Glucagon (Glucagen) 1 mg Q15M PRN IM DECREASED GLUCOSE; Start 05/07/16 at 21:00 Glucose (Glutose) 15 gm Q15M PRN BUCCAL DECREASED GLUCOSE; Start 05/07/16 at 21 :00 Tramadol HCl (Ultram) 50 mg Q6H PRN PO PAIN Last administered on 05/09/16 08: 29; Admin Dose 50 MG; Start 05/08/16 at 00:30 Meclizine HCl (Antivert) 12.5 mg TID PO Last administered on 05/09/16 08:28; Admin Dose 12.5 MG; Start 05/08/16 at 13:00 WILBERTO HERNANDEZ MD May 09, 2016 13:14
--- NOTE | 2016-05-09 19:29 | CONS ---
Date/Time of Note Date/Time of Note DATE: 05/09/16 TIME: 19:21 Consult Date/Type/Reason Admit Date/Time May 07, 2016 at 19:53 Initial Consult Date 05/08/16 Type of Consultation: Neurology Reason for Consultation vertigo, headache, blurred vision Ordering Provider: SHONDA ESPINOSA MD Subjective complains of left sided headache with blurred vision intermittent dizziness when headache is present denies jaw claudication denies generalized myalgias seen eating lunch comfortably at bedside Objective Vital Signs Date Time Temp Pulse Resp B/P Pulse Ox O2 Delivery O2 Flow Rate FiO2 05/09/16 16:10 69 05/09/16 15:39 99.3 20 129/64 97 05/07/16 22:15 Room Air Intake and Output 05/08/16 05/08/16 05/09/16 15:00 23:00 07:00 Intake Total 800 ml Output Total 1000 ml Balance -200 ml Constitutional: alert, distress, oriented Psych: no complaints Head: normocephalic, other Eyes: EOMI, PERRL, other (left field cut, poor cooperation) ENMT: other (tongue is swollen with abrasions ) Respiratory: normal air movement Neurological: other (visual bernard- possible left field cut, no significant facial asymmetry palate upgoing uvula tongue midline, no focal weakness in arms or legs, lifts both LE anti-gravity, no ataxia) Results/Medications Result Diagram: 05/08/16 0559 05/08/16 0559 Results 24 hrs Laboratory Tests Test 05/08/16 21:17 05/09/16 07:45 05/09/16 12:03 05/09/16 18:04 Bedside Glucose 126 174 220 277 H Medications Current Medications Lorazepam (Ativan) 0.5 mg Q6H PRN IV ANXIETY; Start 05/07/16 at 20:30 Ondansetron HCl (Zofran Inj) 4 mg Q6H PRN IV NAUSEA AND/OR VOMITING; Start at 20:30 Aspirin (Aspirin) 81 mg DAILY PO Last administered on 05/09/16t 08:28; Admin Dose 81 MG; Start 05/08/16 at 09:00 Nitroglycerin (Nitroglycerin (Sl Tab) 0.4 Mg) 1 tab Q5M PRN SL CHEST PAIN; Start 05/07/16 at 20:30 Acetaminophen (Tylenol Tab) 650 mg Q6H PRN PO PAIN LEVEL 1-3 OR FEVER Last administered on 05/08/16 21:18; Admin Dose 650 MG; Start 05/07/16 at 20:30 Morphine Sulfate (morphine) 2 mg Q4H PRN IV PAIN LEVEL 7-10 Last administered on 05/09/16 10:24; Admin Dose 2 MG; Start 05/07/16 at 20:30 Docusate Sodium (Colace) 100 mg Q12H PRN PO CONSTIPATION; Start 05/07/16 at 20: 30 Famotidine (Pepcid) 20 mg Q12 PO Last administered on 05/09/16 08:28; Admin Dose 20 MG; Start 05/07/16 at 21:00 Hydralazine HCl (Apresoline) 10 mg Q6H PRN IV sbp > 160 Last administered on 04:56; Admin Dose 10 MG; Start 05/07/16 at 20:30 Atorvastatin Calcium (Lipitor) 10 mg QHS PO Last administered on 05/08/16 21: 18; Admin Dose 10 MG; Start 05/07/16 at 21:00 Insulin Glargine (Lantus) 30 unit QAM SC Last administered on 05/09/16 08:30; Admin Dose 30 UNIT; Start 05/08/16 at 09:00 Diagnostic Test (Pha) (Accucheck) 1 ea 02 XX Last administered on 05/08/16 02: 10; Admin Dose 1 EA; Start 05/08/16 at 02:00 Miscellaneous Information 1 ea NOTE XX ; Start 05/07/16 at 21:00 Glucose (Glutose) 15 gm Q15M PRN PO DECREASED GLUCOSE; Start 05/07/16 at 21:00 Glucose (Glutose) 22.5 gm Q15M PRN PO DECREASED GLUCOSE; Start 05/07/16 at 21: 00 Dextrose (D50w Syringe) 25 ml Q15M PRN IV DECREASED GLUCOSE; Start 05/07/16 at 21:00 Dextrose (D50w Syringe) 50 ml Q15M PRN IV DECREASED GLUCOSE; Start 05/07/16 at 21:00 Glucagon (Glucagen) 1 mg Q15M PRN IM DECREASED GLUCOSE; Start 05/07/16 at 21:00 Glucose (Glutose) 15 gm Q15M PRN BUCCAL DECREASED GLUCOSE; Start 05/07/16 at 21 :00 Tramadol HCl (Ultram) 50 mg Q6H PRN PO PAIN Last administered on 05/09/16 08: 29; Admin Dose 50 MG; Start 05/08/16 at 00:30 Meclizine HCl (Antivert) 12.5 mg TID PO Last administered on 05/09/16 13:58; Admin Dose 12.5 MG; Start 05/08/16 at 13:00 Assessment/Plan Chief Complaint/Hosp Course 66 year old female with history of uncontrolled diabetes, hypertension presenting with vertigo, blurred vision admitted for further work up. CTH on admission negative. MRI Brain shows increased FLAIR signal in left occipital cortex, no significant restricted diffusion. consideration on official report read subacute ischemic changes. changes also seen on FLAIR in posterior region could represent PRES - posterior reversible encephalopathy Recommendations: -continue meclizine 12.5 mg TID standing -tylenol prn headaches, if no improvement, trial of Toradol -new onset headaches, visual changes, check ESR/CRP to evaluate for potential temporal arteritis -may also check temporal artery ultrasound -check HBA1C, Lipid panel for optimization of risk factors -insulin being adjusted for more optimal control of diabetes -maintain normotension -will continue to follow Problems: SHAE CASILLAS MD May 09, 2016 19:29
[2016-05-09] MEDS: ATORVASTATIN 10 MG TAB PO SCH (20:11)
[2016-05-09] MEDS ORDERED: INSULIN ASPART [NOVOLOG] 3 ML PEN SC ONE (20:30)
[2016-05-10] VITALS (11 sets, daily range): BP systolic 115–143; BP diastolic 54–66; PULSE 66–81; RESP 17–20
[2016-05-10] MEDS: ACCUCHECK AT 2AM (Patients on SS coverage) XX SCH (02:54)
[2016-05-10] MEDS: FAMOTIDINE 20 MG TAB PO SCH ×2 (08:19→21:26)
[2016-05-10] MEDS: MECLIZINE 12.5 MG TAB PO SCH (08:19)
[2016-05-10] MEDS: ASPIRIN 81 MG TAB PO SCH (08:19)
[2016-05-10] MEDS: INSULIN ASPART [NOVOLOG] 3 ML PEN SC SCH ×4 (08:20→22:13)
[2016-05-10] MEDS: INSULIN GLARGINE [LANtus] 3 ML PEN SC SCH (08:21)
[2016-05-10] MEDS: morphine 2 MG INJ IV PRN ×2 (08:22→12:19)
--- NOTE | 2016-05-10 12:07 | CONS ---
Date/Time of Note Date/Time of Note DATE: 05/10/16 TIME: 12:05 Consult Date/Type/Reason Admit Date/Time May 07, 2016 at 19:53 Initial Consult Date 05/08/16 Type of Consultation: Neurology Reason for Consultation headaches blurred vision vertigo Ordering Provider: SHONDA ESPINOSA MD Subjective patient reports headache and dizziness when she wakes up blurred vision persistent from left eye only Objective Vital Signs Date Time Temp Pulse Resp B/P Pulse Ox O2 Delivery O2 Flow Rate FiO2 05/10/16 11:02 98.9 65 20 115/56 95 05/07/16 22:15 Room Air Intake and Output 05/09/16 05/09/16 05/10/16 15:00 23:00 07:00 Intake Total 720 ml 500 ml Balance 720 ml 500 ml Constitutional: alert, distress, oriented Psych: no complaints Head: normocephalic, other Eyes: EOMI, PERRL, other (left field cut, poor cooperation) ENMT: other (tongue is swollen with abrasions ) Respiratory: normal air movement Neurological: other (visual bernard- subjectively describes blurred vision from left eye but able to count the number of fingers, no significant facial asymmetry palate upgoing uvula tongue midline, no focal weakness in arms or legs , lifts both LE anti-gravity, no ataxia), Reflexes 1+ throughout toes withdraw b /l Results/Medications Result Diagram: 05/08/16 0559 05/08/16 0559 Results 24 hrs Laboratory Tests Test 05/09/16 18:04 05/09/16 19:55 05/09/16 20:09 05/10/16 02:42 Bedside Glucose 277 H 318 H 242 H C-Reactive Protein 2.6 H Erythrocyte Sedimentation Rate 65 H Test 05/10/16 07:37 Bedside Glucose 158 Medications Current Medications Lorazepam (Ativan) 0.5 mg Q6H PRN IV ANXIETY; Start 05/07/16 at 20:30 Ondansetron HCl (Zofran Inj) 4 mg Q6H PRN IV NAUSEA AND/OR VOMITING; Start at 20:30 Aspirin (Aspirin) 81 mg DAILY PO Last administered on 05/10/16t 08:19; Admin Dose 81 MG; Start 05/08/16 at 09:00 Nitroglycerin (Nitroglycerin (Sl Tab) 0.4 Mg) 1 tab Q5M PRN SL CHEST PAIN; Start 05/07/16 at 20:30 Acetaminophen (Tylenol Tab) 650 mg Q6H PRN PO PAIN LEVEL 1-3 OR FEVER Last administered on 05/08/16 21:18; Admin Dose 650 MG; Start 05/07/16 at 20:30 Morphine Sulfate (morphine) 2 mg Q4H PRN IV PAIN LEVEL 7-10 Last administered on 05/10/16 08:22; Admin Dose 2 MG; Start 05/07/16 at 20:30 Docusate Sodium (Colace) 100 mg Q12H PRN PO CONSTIPATION; Start 05/07/16 at 20: 30 Famotidine (Pepcid) 20 mg Q12 PO Last administered on 05/10/16 08:19; Admin Dose 20 MG; Start 05/07/16 at 21:00 Hydralazine HCl (Apresoline) 10 mg Q6H PRN IV sbp > 160 Last administered on 04:56; Admin Dose 10 MG; Start 05/07/16 at 20:30 Atorvastatin Calcium (Lipitor) 10 mg QHS PO Last administered on 05/09/16 20: 11; Admin Dose 10 MG; Start 05/07/16 at 21:00 Insulin Glargine (Lantus) 30 unit QAM SC Last administered on 05/10/16 08:21; Admin Dose 30 UNIT; Start 05/08/16 at 09:00 Diagnostic Test (Pha) (Accucheck) 1 ea 02 XX Last administered on 05/10/16 02: 54; Admin Dose 1 EA; Start 05/08/16 at 02:00 Miscellaneous Information 1 ea NOTE XX ; Start 05/07/16 at 21:00 Glucose (Glutose) 15 gm Q15M PRN PO DECREASED GLUCOSE; Start 05/07/16 at 21:00 Glucose (Glutose) 22.5 gm Q15M PRN PO DECREASED GLUCOSE; Start 05/07/16 at 21: 00 Dextrose (D50w Syringe) 25 ml Q15M PRN IV DECREASED GLUCOSE; Start 05/07/16 at 21:00 Dextrose (D50w Syringe) 50 ml Q15M PRN IV DECREASED GLUCOSE; Start 05/07/16 at 21:00 Glucagon (Glucagen) 1 mg Q15M PRN IM DECREASED GLUCOSE; Start 05/07/16 at 21:00 Glucose (Glutose) 15 gm Q15M PRN BUCCAL DECREASED GLUCOSE; Start 05/07/16 at 21 :00 Tramadol HCl (Ultram) 50 mg Q6H PRN PO PAIN Last administered on 05/09/16 20: 11; Admin Dose 50 MG; Start 05/08/16 at 00:30 Meclizine HCl (Antivert) 12.5 mg TID PO Last administered on 05/10/16 08:19; Admin Dose 12.5 MG; Start 05/08/16 at 13:00 Assessment/Plan Chief Complaint/Hosp Course 66 year old female with history of uncontrolled diabetes, hypertension presenting with vertigo, blurred vision admitted for further work up. CTH on admission negative. MRI Brain shows increased FLAIR signal in left occipital cortex, no significant restricted diffusion. consideration on official report read subacute ischemic changes. changes also seen on FLAIR in posterior region could represent PRES - posterior reversible encephalopathy ESR elevated to: 65 CRP pending Recommendations: r/o temporal arteritis -continue meclizine 12.5 mg TID standing, may increase to 25 mg TID if no benefit on lower dose -Toradol prn headaches -CRP also sent, pending - temporal artery ultrasound -insulin being adjusted for more optimal control of diabetes -maintain normotension -will continue to follow Problems: SHAE CASILLAS MD May 10, 2016 12:07
[2016-05-10] MEDS: MECLIZINE 25 MG TAB PO SCH ×2 (12:19→21:00)
--- NOTE | 2016-05-10 13:47 | PN ---
Date/Time of Note Date/Time of Note DATE: 05/10/16 TIME: 13:43 Assessment/Plan VTE Prophylaxis VTE Prophylaxis Intervention: SCD's Lines/Catheters IV Catheter Type (from [facility]): [place]ine Lock Urinary Cath still in place: No Assessment/Plan Assessment/Plan 1. Left sided headache with MRI abnormality at left occipital lobe, ? migraine headache, case discussed with neurologist, needs to rule out temporal arteritis , She ordered temporal artery ultrasound that is not available in [facility], will check with ophthalmology 2. DM, adjust insulins 3. Dyslipidemia, on statin 4. Hypertension, stable 5. Sicial worker consultation Subjective 24 Hr Interval Summary Free Text/Dictation still with headache and dizziness Exam/Review of Systems Vital Signs Vitals Vital Signs Date Time Temp Pulse Resp B/P Pulse Ox O2 Delivery O2 Flow Rate FiO2 05/10/16 12:17 66 05/10/16 11:02 98.9 20 115/56 95 05/07/16 22:15 Room Air Intake and Output 05/09/16 05/09/16 05/10/16 15:00 23:00 07:00 Intake Total 720 ml 500 ml Balance 720 ml 500 ml Exam Constitutional: alert, oriented, well developed Psych: nl mood/affect, no complaints Head: atraumatic, normocephalic Eyes: EOMI, PERRL, nl conjunctiva, nl lids, nl sclera ENMT: nl external ears & nose, nl lips & teeth, nl nasal mucosa & septum Neck: non-tender, supple Respiratory: clear to auscultation, normal air movement, No congested cough, No crackles/rales, No diminished breath sounds, No intercostal retraction, No labored breathing, No respirations, No tactile fremitus, No wheezing Cardiovascular: nl pulses, regular rate and rhythm, No S3, No S4, No bruits, No diastolic murmur, No edema, No gallop, No irregular rhythm, No jugular venous distention (JVD), No murmurs/extra sounds, No rub, No systolic murmur Gastrointestinal: nl liver, spleen, non-tender, soft, No ascites, No bowel sounds, No distended, No firm, No hepatomegaly, No mass , No rebound or guarding, No splenomegaly, No surgical scars, No tender Musculoskeletal: nl extremities to inspection Extremities: normal pulses 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, nl mental status, nl speech, nl strength Skin: nl turgor, rash or lesions Lymph: nl lymph nodes Results Result Diagram: 05/08/16 0559 05/08/16 0559 Results 24 hrs Laboratory Tests Test 05/09/16 18:04 05/09/16 19:55 05/09/16 20:09 05/10/16 02:42 Bedside Glucose 277 H 318 H 242 H C-Reactive Protein 2.6 H Erythrocyte Sedimentation Rate 65 H Test 05/10/16 07:37 05/10/16 12:17 Bedside Glucose 158 240 H Medications Medications Current Medications Lorazepam (Ativan) 0.5 mg Q6H PRN IV ANXIETY; Start 05/07/16 at 20:30 Ondansetron HCl (Zofran Inj) 4 mg Q6H PRN IV NAUSEA AND/OR VOMITING; Start at 20:30 Aspirin (Aspirin) 81 mg DAILY PO Last administered on 05/10/16 08:19; Admin Dose 81 MG; Start 05/08/16 at 09:00 Nitroglycerin (Nitroglycerin (Sl Tab) 0.4 Mg) 1 tab Q5M PRN SL CHEST PAIN; Start 05/07/16 at 20:30 Acetaminophen (Tylenol Tab) 650 mg Q6H PRN PO PAIN LEVEL 1-3 OR FEVER Last administered on 05/08/16 21:18; Admin Dose 650 MG; Start 05/07/16 at 20:30 Morphine Sulfate (morphine) 2 mg Q4H PRN IV PAIN LEVEL 7-10 Last administered on 05/10/16 12:19; Admin Dose 2 MG; Start 05/07/16 at 20:30 Docusate Sodium (Colace) 100 mg Q12H PRN PO CONSTIPATION; Start 05/07/16 at 20: 30 Famotidine (Pepcid) 20 mg Q12 PO Last administered on 05/10/16 08:19; Admin Dose 20 MG; Start 05/07/16 at 21:00 Hydralazine HCl (Apresoline) 10 mg Q6H PRN IV sbp > 160 Last administered on 04:56; Admin Dose 10 MG; Start 05/07/16 at 20:30 Atorvastatin Calcium (Lipitor) 10 mg QHS PO Last administered on 05/09/16 20: 11; Admin Dose 10 MG; Start 05/07/16 at 21:00 Insulin Glargine (Lantus) 30 unit QAM SC Last administered on 05/10/16 08:21; Admin Dose 30 UNIT; Start 05/08/16 at 09:00 Diagnostic Test (Pha) (Accucheck) 1 ea 02 XX Last administered on 05/10/16 02: 54; Admin Dose 1 EA; Start 05/08/16 at 02:00 Miscellaneous Information 1 ea NOTE XX ; Start 05/07/16 at 21:00 Glucose (Glutose) 15 gm Q15M PRN PO DECREASED GLUCOSE; Start 05/07/16 at 21:00 Glucose (Glutose) 22.5 gm Q15M PRN PO DECREASED GLUCOSE; Start 05/07/16 at 21: 00 Dextrose (D50w Syringe) 25 ml Q15M PRN IV DECREASED GLUCOSE; Start 05/07/16 at 21:00 Dextrose (D50w Syringe) 50 ml Q15M PRN IV DECREASED GLUCOSE; Start 05/07/16 at 21:00 Glucagon (Glucagen) 1 mg Q15M PRN IM DECREASED GLUCOSE; Start 05/07/16 at 21:00 Glucose (Glutose) 15 gm Q15M PRN BUCCAL DECREASED GLUCOSE; Start 05/07/16 at 21 :00 Tramadol HCl (Ultram) 50 mg Q6H PRN PO PAIN Last administered on 05/09/16 20: 11; Admin Dose 50 MG; Start 05/08/16 at 00:30 Meclizine HCl (Antivert) 25 mg TID PO Last administered on 05/10/16 12:19; Admin Dose 25 MG; Start 05/10/16 at 13:00 WILBERTO HERNANDEZ MD May 10, 2016 13:47
[2016-05-10] MEDS: ACETAMINOPHEN 325 MG TAB PO PRN ×2 (16:34→22:06)
[2016-05-10] MEDS: ATORVASTATIN 10 MG TAB PO SCH (21:27)
[2016-05-11] MEDS: ACCUCHECK AT 2AM (Patients on SS coverage) XX SCH (02:00)
[2016-05-11 08:00] VITALS: BP 139/60; RESP 19
[2016-05-11] MEDS: MECLIZINE 25 MG TAB PO SCH ×3 (08:24→20:12)
[2016-05-11] MEDS: FAMOTIDINE 20 MG TAB PO SCH ×2 (08:24→20:12)
[2016-05-11] MEDS: ASPIRIN 81 MG TAB PO SCH (08:24)
[2016-05-11] MEDS: INSULIN ASPART [NOVOLOG] 3 ML PEN SC SCH ×5 (08:27→20:29)
[2016-05-11] MEDS ORDERED: INSULIN GLARGINE [LANtus] 3 ML PEN SC SCH (09:00)
--- NOTE | 2016-05-11 09:16 | CONS ---
DATE OF ADMISSION: 05/07/2016 DATE OF CONSULTATION: 05/11/2016 OPHTHALMOLOGY CONSULTATION REFERRING PHYSICIAN: Paul Mcduffie MD HISTORY OF PRESENT ILLNESS: Thank you for asking me to see this 66-year-old female patient, felipe alexander for dizziness and left-sided headaches. The patient is somewhat confused and cannot give a clear history; however, states that she has pain around her left eye, associated with blurring of vision, for an indeterminate period of time. The patient also states she is diabetic. Review of the medical record shows that the patient has insulin-dependent diabetes mellitus, dyslipi demia, and systemic hypertension. The patient has had a MRI scan which showed some questionable sub acute ischemic changes in the left occipital cortex. The neurological consultation was negative, wi th a diagnosis being rule out temporal arteritis, or migraine headaches. PHYSICAL EXAMINATION: The visual acuity cannot be obtained because the patient is confused and clai ms not to be able to see with either eye. The pupil of each eye is 3 mm, round and reactive to ligh t. The extraocular movement is full. Examination of the anterior segment appears within normal osorio its. Applanation tonometry is 17 mmHg in both eyes. The pupil of each eye is dilated. Examination of the media appears clear. Examination of the retina reveals normal-appearing optic disk, with no evidence of papilledema or blurring of the disk margins in either eye. The retinal veins appear to be slightly engorged bilaterally. There is no evidence of diabetic retinopathy involving hemorrhag e or exudates present in either eye. Examination of the macular region appears within normal limits . DIAGNOSIS: In view of the fact that the patient has an elevated sed rate, the possibility of tempora l arteritis cannot be totally ruled out; however, there is no finding of papilledema present in eith er eye. No evidence of any retinal hemorrhages. There is no treatment intervention indicated from an ophthalmologic stand point of view. Dictated By: CHRISTINE DUNCAN/SUSAN Conf#: [id number] DID#: [id number]
[2016-05-11] MEDS: morphine 2 MG INJ IV PRN ×3 (11:07→23:36)
--- NOTE | 2016-05-11 15:09 | PN ---
Date/Time of Note Date/Time of Note DATE: 05/11/16 TIME: 15:06 Assessment/Plan VTE Prophylaxis VTE Prophylaxis Intervention: SCD's Lines/Catheters IV Catheter Type (from Nrs): Saline Lock Urinary Cath still in place: No Assessment/Plan Assessment/Plan 1. Left sided headache with MRI abnormality at left occipital lobe, needs to r/ o temporal arteritis or migraine, ophthalmology note reviewed, follow up with neurology for further work up/treatment 2. DM, adjust insulins 3. Dyslipidemia, on statin 4. Hypertension, stable Subjective 24 Hr Interval Summary Free Text/Dictation still with dizziness and right sided headache and pain on right eye Exam/Review of Systems Vital Signs Vitals Vital Signs Date Time Temp Pulse Resp B/P Pulse Ox O2 Delivery O2 Flow Rate FiO2 05/11/16 08:00 98.3 87 19 139/60 94 05/10/16 20:00 Room Air Intake and Output 05/10/16 05/10/16 05/11/16 15:00 23:00 07:00 Intake Total 850 ml 360 ml Balance 850 ml 360 ml Exam Constitutional: alert, oriented, well developed Psych: nl mood/affect, no complaints Head: atraumatic, normocephalic Eyes: EOMI, PERRL, nl conjunctiva, nl lids, nl sclera ENMT: mucosa pink and moist, nl external ears & nose, nl lips & teeth, nl nasal mucosa & septum Neck: non-tender, supple Respiratory: clear to auscultation, normal air movement, No congested cough, No crackles/rales, No diminished breath sounds, No intercostal retraction, No labored breathing, No respirations, No tactile fremitus, No wheezing Cardiovascular: nl pulses, regular rate and rhythm, No S3, No S4, No bruits, No diastolic murmur, No edema, No gallop, No irregular rhythm, No jugular venous distention (JVD), No murmurs/extra sounds, No rub, No systolic murmur Gastrointestinal: nl liver, spleen, non-tender, soft, No ascites, No bowel sounds, No distended, No firm, No hepatomegaly, No mass , No rebound or guarding, No splenomegaly, No surgical scars, No tender Musculoskeletal: nl extremities to inspection Extremities: normal pulses, No calf tenderness, No clubbing, No cyanosis, No edema, No palpable cord, No pitting pedal edema, No tenderness Neurological: DEFENCE [employer] MEMBER 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 RANKS II-XII intact, nl mental status, nl speech, nl strength Skin: nl turgor, rash or lesions Lymph: nl lymph nodes Results Result Diagram: 05/08/16 0559 05/08/16 0559 Results 24 hrs Laboratory Tests Test 05/10/16 17:12 05/10/16 19:59 05/11/16 02:27 05/11/16 07:55 Bedside Glucose 186 285 H 231 H 215 Test 05/11/16 11:42 Bedside Glucose 234 H Medications Medications Current Medications Lorazepam (Ativan) 0.5 mg Q6H PRN IV ANXIETY; Start 05/07/16 at 20:30 Ondansetron HCl (Zofran Inj) 4 mg Q6H PRN IV NAUSEA AND/OR VOMITING; Start at 20:30 Aspirin (Aspirin) 81 mg DAILY PO Last administered on 05/11/16 08:24; Admin Dose 81 MG; Start 05/08/16 at 09:00 Nitroglycerin (Nitroglycerin (Sl Tab) 0.4 Mg) 1 tab Q5M PRN SL CHEST PAIN; Start 05/07/16 at 20:30 Acetaminophen (Tylenol Tab) 650 mg Q6H PRN PO PAIN LEVEL 1-3 OR FEVER Last administered on 05/10/16 22:06; Admin Dose 650 MG; Start 05/07/16 at 20:30 Morphine Sulfate (morphine) 2 mg Q4H PRN IV PAIN LEVEL 7-10 Last administered on 05/11/16 11:07; Admin Dose 2 MG; Start 05/07/16 at 20:30 Docusate Sodium (Colace) 100 mg Q12H PRN PO CONSTIPATION; Start 05/07/16 at 20: 30 Famotidine (Pepcid) 20 mg Q12 PO Last administered on 05/11/16 08:24; Admin Dose 20 MG; Start 05/07/16 at 21:00 Hydralazine HCl (Apresoline) 10 mg Q6H PRN IV sbp > 160 Last administered on 04:56; Admin Dose 10 MG; Start 05/07/16 at 20:30 Atorvastatin Calcium (Lipitor) 10 mg QHS PO Last administered on 05/10/16 21: 27; Admin Dose 10 MG; Start 05/07/16 at 21:00 Diagnostic Test (Pha) (Accucheck) 1 ea 02 XX Last administered on 05/10/16 02: 54; Admin Dose 1 EA; Start 05/08/16 at 02:00 Miscellaneous Information 1 ea NOTE XX ; Start 05/07/16 at 21:00 Glucose (Glutose) 15 gm Q15M PRN PO DECREASED GLUCOSE; Start 05/07/16 at 21:00 Glucose (Glutose) 22.5 gm Q15M PRN PO DECREASED GLUCOSE; Start 05/07/16 at 21: 00 Dextrose (D50w Syringe) 25 ml Q15M PRN IV DECREASED GLUCOSE; Start 05/07/16 at 21:00 Dextrose (D50w Syringe) 50 ml Q15M PRN IV DECREASED GLUCOSE; Start 05/07/16 at 21:00 Glucagon (Glucagen) 1 mg Q15M PRN IM DECREASED GLUCOSE; Start 05/07/16 at 21:00 Glucose (Glutose) 15 gm Q15M PRN BUCCAL DECREASED GLUCOSE; Start 05/07/16 at 21 :00 Tramadol HCl (Ultram) 50 mg Q6H PRN PO PAIN Last administered on 05/09/16 20: 11; Admin Dose 50 MG; Start 05/08/16 at 00:30 Meclizine HCl (Antivert) 25 mg TID PO Last administered on 05/11/16 12:46; Admin Dose 25 MG; Start 05/10/16 at 13:00 Insulin Glargine (Lantus) 38 unit QAM SC ; Start 05/12/16 at 09:00 WILBERTO HERNANDEZ MD May 11, 2016 15:09
--- NOTE | 2016-05-11 17:45 | CONS ---
Date/Time of Note Date/Time of Note DATE: 05/11/16 TIME: 17:38 Assessment/Plan Assessment/Plan Chief Complaint/Hosp Course Headache and dizziness Problems: Additional Assessment/Plan 66 year old female with history of uncontrolled diabetes, hypertension presenting with vertigo, blurred vision admitted for further work up. CTH on admission negative. MRI Brain shows increased FLAIR signal in left occipital cortex, no significant restricted diffusion. consideration on official report read subacute ischemic changes. changes also seen on FLAIR in posterior region could represent PRES - posterior reversible encephalopathy ESR elevated to: 65 CRP pending Start Topiramate 25 mg po qhs Recommendations: r/o temporal arteritis -continue meclizine 12.5 mg TID standing, may increase to 25 mg TID if no benefit on lower dose -Toradol prn headaches -CRP also sent, pending - temporal artery ultrasound -insulin being adjusted for more optimal control of diabetes -maintain normotension -start Topiramate 25 mg po qhs -will continue to follow Consultation Date/Type/Reason Admit Date/Time May 07, 2016 at 19:53 Initial Consult Date 05/08/16 Type of Consultation: Neurology Referring Provider: SHONDA ESPINOSA MD 24 HR Interval Summary Free Text/Dictation Still reporting headache without nausea or vomiting. She walked with therapist. Constitutional: other (headache) Exam/Review of Systems Vital Signs Vitals Vital Signs Date Time Temp Pulse Resp B/P Pulse Ox O2 Delivery O2 Flow Rate FiO2 05/11/16 08:00 98.3 87 19 139/60 94 05/10/16 20:00 Room Air Intake and Output 05/10/16 05/10/16 05/11/16 15:00 23:00 07:00 Intake Total 850 ml 360 ml Balance 850 ml 360 ml Exam Constitutional: alert, oriented, well developed Psych: nl mood/affect, no complaints Head: atraumatic, normocephalic Eyes: EOMI, nl conjunctiva, nl lids, nl sclera ENMT: mucosa pink and moist, nl external ears & nose, nl lips & teeth, nl nasal mucosa & septum Neck: non-tender, supple Respiratory: clear to auscultation, normal air movement Cardiovascular: nl pulses, regular rate and rhythm Gastrointestinal: nl liver, spleen, soft Genitourinary - Female: nl adnexae, nl external genitalia Musculoskeletal: nl extremities to inspection, nl gait and stance Extremities: normal pulses 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, nl mental status, nl speech, nl strength Skin: nl turgor Lymph: nl lymph nodes Results Result Diagram: 05/08/16 0559 05/08/16 0559 Results 24 hrs Laboratory Tests Test 05/10/16 19:59 05/11/16 02:27 05/11/16 07:55 05/11/16 11:42 Bedside Glucose 285 H 231 H 215 234 H Test 05/11/16 16:46 Bedside Glucose 145 Medications Medications Current Medications Lorazepam (Ativan) 0.5 mg Q6H PRN IV ANXIETY; Start 05/07/16 at 20:30 Ondansetron HCl (Zofran Inj) 4 mg Q6H PRN IV NAUSEA AND/OR VOMITING; Start at 20:30 Aspirin (Aspirin) 81 mg DAILY PO Last administered on 05/11/16 08:24; Admin Dose 81 MG; Start 05/08/16 at 09:00 Nitroglycerin (Nitroglycerin (Sl Tab) 0.4 Mg) 1 tab Q5M PRN SL CHEST PAIN; Start 05/07/16 at 20:30 Acetaminophen (Tylenol Tab) 650 mg Q6H PRN PO PAIN LEVEL 1-3 OR FEVER Last administered on 05/10/16 22:06; Admin Dose 650 MG; Start 05/07/16 at 20:30 Morphine Sulfate (morphine) 2 mg Q4H PRN IV PAIN LEVEL 7-10 Last administered on 05/11/16 17:22; Admin Dose 2 MG; Start 05/07/16 at 20:30 Docusate Sodium (Colace) 100 mg Q12H PRN PO CONSTIPATION; Start 05/07/16 at 20: 30 Famotidine (Pepcid) 20 mg Q12 PO Last administered on 05/11/16 08:24; Admin Dose 20 MG; Start 05/07/16 at 21:00 Hydralazine HCl (Apresoline) 10 mg Q6H PRN IV sbp > 160 Last administered on 04:56; Admin Dose 10 MG; Start 05/07/16 at 20:30 Atorvastatin Calcium (Lipitor) 10 mg QHS PO Last administered on 05/10/16 21: 27; Admin Dose 10 MG; Start 05/07/16 at 21:00 Diagnostic Test (Pha) (Accucheck) 1 ea 02 XX Last administered on 05/10/16 02: 54; Admin Dose 1 EA; Start 05/08/16 at 02:00 Miscellaneous Information 1 ea NOTE XX ; Start 05/07/16 at 21:00 Glucose (Glutose) 15 gm Q15M PRN PO DECREASED GLUCOSE; Start 05/07/16 at 21:00 Glucose (Glutose) 22.5 gm Q15M PRN PO DECREASED GLUCOSE; Start 05/07/16 at 21: 00 Dextrose (D50w Syringe) 25 ml Q15M PRN IV DECREASED GLUCOSE; Start 05/07/16 at 21:00 Dextrose (D50w Syringe) 50 ml Q15M PRN IV DECREASED GLUCOSE; Start 05/07/16 at 21:00 Glucagon (Glucagen) 1 mg Q15M PRN IM DECREASED GLUCOSE; Start 05/07/16 at 21:00 Glucose (Glutose) 15 gm Q15M PRN BUCCAL DECREASED GLUCOSE; Start 05/07/16 at 21 :00 Tramadol HCl (Ultram) 50 mg Q6H PRN PO PAIN Last administered on 05/09/16 20: 11; Admin Dose 50 MG; Start 05/08/16 at 00:30 Meclizine HCl (Antivert) 25 mg TID PO Last administered on 05/11/16 12:46; Admin Dose 25 MG; Start 05/10/16 at 13:00 Insulin Glargine (Lantus) 24 unit QAM SC ; Start 05/12/16 at 09:00 Procedures Procedures 05/08/16 MRI of brain IMPRESSION: 1. Increased T2-weighted FLAIR signal intensity in the left occipital cortex without significant restricted diffusion. Exact etiology is unclear. Considerations include subacute ischemic changes, possibly focal cerebritis, resolving postictal changes. 2. No intracranial hemorrhage, or midline shift. 3. Mild chronic small vessel ischemic changes. Results called to Chayo Mccarthy RN at 05:35 p.m., 05/08/2016. RPTAT: VV .Allen Sorenson MD, MD Date Time Electronically viewed and signed by .Allen Sorenson MD, MD on 05/08/2016 17:41 05/08/15 MRA of brain IMPRESSION: 1. Mild luminal irregularity of the internal carotid arteries bilaterally with no hemodynamically significant stenosis identified. 2. Otherwise, grossly normal MRA of the brain. RPTAT: PP .Chayo Boston MD, MD Date Time Electronically viewed and signed by .Chayo Boston MD, MD on 05/08/2016 17:09 05/08/15 MRA of neck IMPRESSION: Somewhat limited evaluation due to motion, without occlusion or hemodynamically significant stenosis identified. RPTAT: VV .Allen Sorenson MD, MD Date Time Electronically viewed and signed by .Allen Sorenson MD, MD on 05/08/2016 17:26 MAIRA KIM MD May 11, 2016 17:45
[2016-05-11 19:41] VITALS: BP 132/60; RESP 20
[2016-05-11] MEDS: TOPIRAMATE 25 MG TAB PO SCH (20:12)
[2016-05-11] MEDS: ATORVASTATIN 10 MG TAB PO SCH (20:12)
[2016-05-12] MEDS: ACCUCHECK AT 2AM (Patients on SS coverage) XX SCH (01:52)
[2016-05-12 07:34] VITALS: BP 121/53; RESP 20
[2016-05-12] MEDS: INSULIN ASPART [NOVOLOG] 3 ML PEN SC SCH ×7 (08:55→20:29)
[2016-05-12] MEDS: INSULIN GLARGINE [LANtus] 3 ML PEN SC SCH (08:57)
[2016-05-12] MEDS: MECLIZINE 25 MG TAB PO SCH ×3 (08:57→20:31)
[2016-05-12] MEDS: ASPIRIN 81 MG TAB PO SCH (08:57)
[2016-05-12] MEDS: FAMOTIDINE 20 MG TAB PO SCH ×2 (08:57→20:27)
--- NOTE | 2016-05-12 08:59 | PN ---
Date/Time of Note Date/Time of Note DATE: 05/12/16 TIME: 08:55 Assessment/Plan VTE Prophylaxis VTE Prophylaxis Intervention: LMWH Lines/Catheters [facility] Saline Lock Urinary Cath still in place: No Assessment/Plan Chief Complaint/Hosp Course Assessment 1. Left sided headache with MRI abnormality at left occipital lobe, seen by ophthalmology concern for possible temporal arteritis, started on topiramate in addition to meclizine for nausea and vomiting pending ultrasound of temporal artery. 2. DM, adjust insulins 3. Dyslipidemia, on statin 4. Hypertension, stable Plan 1. Ultrasound temporal artery 2. Continue glycemic management 3. Continue pain control and antiemetics 4. Low molecular weight heparin for DVT prophylaxis 5. Consider empiric trial of steroids will defer to neurology Problems: Subjective 24 Hr Interval Summary Free Text/Dictation Left-sided headache is improving Patient still complaining of dizziness with ambulation This morning she is complaining of pain in the right flank area No dysuria urgency or frequency Still pending ultrasound of temporal artery Started on topiramate in addition to meclizine by neurology Exam/Review of Systems Vital Signs Vitals Vital Signs Date Time Temp Pulse Resp B/P Pulse Ox O2 Delivery O2 Flow Rate FiO2 05/12/16 07:34 98.5 75 20 121/53 93 05/10/16 20:00 Room Air Intake and Output 05/11/16 05/11/16 05/12/16 15:00 23:00 07:00 Intake Total 1170 ml 480 ml Output Total 850 ml Balance 320 ml 480 ml Exam Moderately obese lady awake alert oriented comfortable at rest VITAL SIGNS: per chart NECK: Supple. No JVD or lymphadenopathy. CARDIAC EXAM: S1, S2. No added sounds or murmurs. CHEST: clear bilaterally, No added sounds, rales or wheezes ABDOMEN: Soft, nontender. No guarding or rebound. EXTREMITIES: No cyanosis, clubbing or edema. NEUROLOGIC: Generalized weakness. No focal deficits. Results Result Diagram: 05/08/16 0559 05/08/16 0559 Results 24 hrs Laboratory Tests Test 05/11/16 11:42 05/11/16 16:46 05/11/16 20:09 05/12/16 01:44 Bedside Glucose 234 H 145 250 H 145 Test 05/12/16 07:33 Bedside Glucose 144 Medications Medications Current Medications Lorazepam (Ativan) 0.5 mg Q6H PRN IV ANXIETY; Start 05/07/16 at 20:30 Ondansetron HCl (Zofran Inj) 4 mg Q6H PRN IV NAUSEA AND/OR VOMITING; Start at 20:30 Aspirin (Aspirin) 81 mg DAILY PO Last administered on 05/11/16 08:24; Admin Dose 81 MG; Start 05/08/16 at 09:00 Nitroglycerin (Nitroglycerin (Sl Tab) 0.4 Mg) 1 tab Q5M PRN SL CHEST PAIN; Start 05/07/16 at 20:30 Acetaminophen (Tylenol Tab) 650 mg Q6H PRN PO PAIN LEVEL 1-3 OR FEVER Last administered on 05/10/16 22:06; Admin Dose 650 MG; Start 05/07/16 at 20:30 Morphine Sulfate (morphine) 2 mg Q4H PRN IV PAIN LEVEL 7-10 Last administered on 05/11/16 23:36; Admin Dose 2 MG; Start 05/07/16 at 20:30 Docusate Sodium (Colace) 100 mg Q12H PRN PO CONSTIPATION; Start 05/07/16 at 20: 30 Famotidine (Pepcid) 20 mg Q12 PO Last administered on 05/11/16 20:12; Admin Dose 20 MG; Start 05/07/16 at 21:00 Hydralazine HCl (Apresoline) 10 mg Q6H PRN IV sbp > 160 Last administered on 04:56; Admin Dose 10 MG; Start 05/07/16 at 20:30 Atorvastatin Calcium (Lipitor) 10 mg QHS PO Last administered on 05/11/16 20: 12; Admin Dose 10 MG; Start 05/07/16 at 21:00 Diagnostic Test (Pha) (Accucheck) 1 ea 02 XX Last administered on 05/10/16 02: 54; Admin Dose 1 EA; Start 05/08/16 at 02:00 Miscellaneous Information 1 ea NOTE XX ; Start 05/07/16 at 21:00 Glucose (Glutose) 15 gm Q15M PRN PO DECREASED GLUCOSE; Start 05/07/16 at 21:00 Glucose (Glutose) 22.5 gm Q15M PRN PO DECREASED GLUCOSE; Start 1/23/17 at 21: 00 Dextrose (D50w Syringe) 25 ml Q15M PRN IV DECREASED GLUCOSE; Start 05/07/16 at 21:00 Dextrose (D50w Syringe) 50 ml Q15M PRN IV DECREASED GLUCOSE; Start 05/07/16 at 21:00 Glucagon (Glucagen) 1 mg Q15M PRN IM DECREASED GLUCOSE; Start 05/07/16 at 21:00 Glucose (Glutose) 15 gm Q15M PRN BUCCAL DECREASED GLUCOSE; Start 05/07/16 at 21 :00 Tramadol HCl (Ultram) 50 mg Q6H PRN PO PAIN Last administered on 05/09/16 20: 11; Admin Dose 50 MG; Start 05/08/16 at 00:30 Meclizine HCl (Antivert) 25 mg TID PO Last administered on 05/11/16 20:12; Admin Dose 25 MG; Start 05/10/16 at 13:00 Insulin Glargine (Lantus) 24 unit QAM SC ; Start 05/12/16 at 09:00 Topiramate (Topamax) 25 mg QHS PO Last administered on 05/11/16 20:12; Admin Dose 25 MG; Start 05/11/16 at 21:00 MAGNO SANDHU MD, [facility] May 12, 2016 08:59
[2016-05-12] MEDS ORDERED: INSULIN GLARGINE [LANtus] 3 ML PEN SC SCH (09:00)
[2016-05-12] MEDS: ENOXAPARIN 30 MG/0.3 ML SYG SC SCH (09:16)
[2016-05-12] MEDS: morphine 2 MG INJ IV PRN ×2 (10:53→20:30)
[2016-05-12] MEDS: DOCUSATE SODIUM 100 MG CAP PO PRN (15:19)
--- NOTE | 2016-05-12 15:29 | CONS ---
Date/Time of Note Date/Time of Note DATE: 05/12/16 TIME: 15:27 Assessment/Plan Assessment/Plan Chief Complaint/Hosp Course Headache and dizziness Problems: Additional Assessment/Plan 66 year old female with history of uncontrolled diabetes, hypertension presenting with vertigo, blurred vision admitted for further work up. CTH on admission negative. MRI Brain shows increased FLAIR signal in left occipital cortex, no significant restricted diffusion. consideration on official report read subacute ischemic changes. changes also seen on FLAIR in posterior region could represent PRES - posterior reversible encephalopathy ESR elevated to: 65 CRP pending Start Topiramate 25 mg po qhs Temporal artery biopsy Consultation Date/Type/Reason Admit Date/Time May 07, 2016 at 19:53 Initial Consult Date 05/08/16 Type of Consultation: Neurology Referring Provider: SHONDA ESPINOSA MD 24 HR Interval Summary Free Text/Dictation Still complaining of headache which is slightly better with Morphine. Temporal artery US could not be done. Exam/Review of Systems Vital Signs Vitals Vital Signs Date Time Temp Pulse Resp B/P Pulse Ox O2 Delivery O2 Flow Rate FiO2 05/12/16 07:34 98.5 75 20 121/53 93 05/10/16 20:00 Room Air Intake and Output 05/11/16 05/11/16 05/12/16 15:00 23:00 07:00 Intake Total 1170 ml 480 ml Output Total 850 ml Balance 320 ml 480 ml Exam Constitutional: alert, oriented, well developed Psych: nl mood/affect, no complaints Head: atraumatic, normocephalic Eyes: EOMI, nl conjunctiva, nl lids, nl sclera ENMT: mucosa pink and moist, nl external ears & nose, nl lips & teeth, nl nasal mucosa & septum Neck: non-tender, supple Respiratory: clear to auscultation, normal air movement Cardiovascular: nl pulses, regular rate and rhythm Gastrointestinal: nl liver, spleen, non-tender, soft Genitourinary - Female: nl adnexae, nl external genitalia Musculoskeletal: nl extremities to inspection, nl gait and stance Extremities: normal pulses 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, nl mental status, nl speech, nl strength Skin: nl turgor, rash or lesions Lymph: nl lymph nodes Results Result Diagram: 05/08/16 0559 05/08/16 0559 Results 24 hrs Laboratory Tests Test 05/11/16 16:46 1/27/17 20:09 05/12/16 01:44 05/12/16 07:33 Bedside Glucose 145 250 H 145 144 Test 05/12/16 11:18 Bedside Glucose 195 Medications Medications Current Medications Lorazepam (Ativan) 0.5 mg Q6H PRN IV ANXIETY; Start 05/07/16 at 20:30 Ondansetron HCl (Zofran Inj) 4 mg Q6H PRN IV NAUSEA AND/OR VOMITING; Start at 20:30 Aspirin (Aspirin) 81 mg DAILY PO Last administered on 05/12/16 08:57; Admin Dose 81 MG; Start 05/08/16 at 09:00 Nitroglycerin (Nitroglycerin (Sl Tab) 0.4 Mg) 1 tab Q5M PRN SL CHEST PAIN; Start 05/07/16 at 20:30 Acetaminophen (Tylenol Tab) 650 mg Q6H PRN PO PAIN LEVEL 1-3 OR FEVER Last administered on 05/10/16 22:06; Admin Dose 650 MG; Start 05/07/16 at 20:30 Morphine Sulfate (morphine) 2 mg Q4H PRN IV PAIN LEVEL 7-10 Last administered on 05/12/16 10:53; Admin Dose 2 MG; Start 05/07/16 at 20:30 Docusate Sodium (Colace) 100 mg Q12H PRN PO CONSTIPATION Last administered on 15:19; Admin Dose 100 MG; Start 05/07/16 at 20:30 Famotidine (Pepcid) 20 mg Q12 PO Last administered on 05/12/16 08:57; Admin Dose 20 MG; Start 05/07/16 at 21:00 Hydralazine HCl (Apresoline) 10 mg Q6H PRN IV sbp > 160 Last administered on 04:56; Admin Dose 10 MG; Start 05/07/16 at 20:30 Atorvastatin Calcium (Lipitor) 10 mg QHS PO Last administered on 05/11/16 20: 12; Admin Dose 10 MG; Start 05/07/16 at 21:00 Diagnostic Test (Pha) (Accucheck) 1 ea 02 XX Last administered on 05/10/16 02: 54; Admin Dose 1 EA; Start 05/08/16 at 02:00 Miscellaneous Information 1 ea NOTE XX ; Start 05/07/16 at 21:00 Glucose (Glutose) 15 gm Q15M PRN PO DECREASED GLUCOSE; Start 05/07/16 at 21:00 Glucose (Glutose) 22.5 gm Q15M PRN PO DECREASED GLUCOSE; Start 05/07/16 at 21: 00 Dextrose (D50w Syringe) 25 ml Q15M PRN IV DECREASED GLUCOSE; Start 05/07/16 at 21:00 Dextrose (D50w Syringe) 50 ml Q15M PRN IV DECREASED GLUCOSE; Start 05/07/16 at 21:00 Glucagon (Glucagen) 1 mg Q15M PRN IM DECREASED GLUCOSE; Start 05/07/16 at 21:00 Glucose (Glutose) 15 gm Q15M PRN BUCCAL DECREASED GLUCOSE; Start 05/07/16 at 21 :00 Tramadol HCl (Ultram) 50 mg Q6H PRN PO PAIN Last administered on 05/09/16 20: 11; Admin Dose 50 MG; Start 05/08/16 at 00:30 Meclizine HCl (Antivert) 25 mg TID PO Last administered on 05/12/16 12:21; Admin Dose 25 MG; Start 05/10/16 at 13:00 Insulin Glargine (Lantus) 24 unit QAM SC Last administered on 05/12/16 08:57; Admin Dose 24 UNIT; Start 05/12/16 at 09:00 Topiramate (Topamax) 25 mg QHS PO Last administered on 05/11/16 20:12; Admin Dose 25 MG; Start 05/11/16 at 21:00 Enoxaparin Sodium (Lovenox) 30 mg DAILY SC Last administered on 05/12/16 09:16 ; Admin Dose 30 MG; Start 05/12/16 at 09:00 MAIRA KIM MD May 12, 2016 15:29
[2016-05-12 19:31] VITALS: BP 117/55; RESP 20
[2016-05-12] MEDS: TOPIRAMATE 25 MG TAB PO SCH (20:27)
[2016-05-12] MEDS: ATORVASTATIN 10 MG TAB PO SCH (20:27)
[2016-05-13] MEDS: traMADol 50 MG TAB PO PRN ×4 (01:21→23:36)
[2016-05-13] MEDS: ACCUCHECK AT 2AM (Patients on SS coverage) XX SCH (02:00)
[2016-05-13 05:32] LABS: POTASSIUM 4.4 mmol/L (3.5-5.1)
[2016-05-13 05:33] LABS: BASOPHILS % 0.4 % (0.0-2.0); EOSINOPHILS # 0.2 10^3/ul (0.0-0.5); HEMATOCRIT 33.7 % (37.0-47.0); HEMOGLOBIN 11.5 g/dl (12.0-16.0); LYMPHOCYTES # 1.8 10^3/ul (0.8-2.9); LYMPHOCYTES % 23.6 % (15.0-51.0); MEAN CORPUSCULAR HEMOGLOBIN 27.8 pg (29.0-33.0); MEAN CORPUSCULAR HGB CONC 34.1 g/dl (32.0-37.0); MEAN CORPUSCULAR VOLUME 81.5 fl (82.0-101.0); MEAN PLATELET VOLUME 9.7 fl (7.4-10.4); MONOCYTE # 0.7 10^3/ul (0.3-0.9); NEUTROPHIL # 4.9 10^3/ul (1.6-7.5); PLATELET COUNT 255 10^3/UL (140-440); RED BLOOD COUNT 4.14 10^6/ul (4.20-5.40); RED CELL DISTRIBUTION WIDTH 12.8 % (11.5-14.5); UNCORRECTED WBC 7.5 10^3/ul (4.8-10.8); WHITE BLOOD COUNT 7.5 10^3/ul (4.8-10.8)
[2016-05-13 05:34] LABS: CREATININE 0.67 mg/dl (0.44-1.00)
[2016-05-13 05:35] LABS: PHOSPHORUS 4.9 mg/dl (2.5-4.9)
[2016-05-13 05:59] LABS: CONDITION 1; LH ANALYZER COMMENTS 1
[2016-05-13 07:52] VITALS: BP 96/54; RESP 17
[2016-05-13] MEDS: INSULIN ASPART [NOVOLOG] 3 ML PEN SC SCH ×7 (08:00→20:53)
[2016-05-13] MEDS: ENOXAPARIN 30 MG/0.3 ML SYG SC SCH (08:50)
[2016-05-13] MEDS: MECLIZINE 25 MG TAB PO SCH ×3 (08:50→20:46)
[2016-05-13] MEDS: FAMOTIDINE 20 MG TAB PO SCH ×2 (08:50→20:46)
[2016-05-13] MEDS: INSULIN GLARGINE [LANtus] 3 ML PEN SC SCH (09:00)
[2016-05-13] MEDS: ASPIRIN 81 MG TAB PO SCH (09:03)
[2016-05-13] MEDS: morphine 2 MG INJ IV PRN ×3 (12:04→22:23)
--- NOTE | 2016-05-13 13:50 | PN ---
Date/Time of Note Date/Time of Note DATE: 05/13/16 TIME: 13:45 Assessment/Plan VTE Prophylaxis VTE Prophylaxis Intervention: LMWH Lines/Catheters IV C[facility]ter Type (from [facility] Saline Lock Urinary Cath still in place: No Assessment/Plan Chief Complaint/Hosp Course Assessment 1. Left sided headache with MRI abnormality at left occipital lobe, seen by ophthalmology concern for possible temporal arteritis, started on topiramate in addition to meclizine for nausea and vomiting pending temporal artery biopsy. ESR rising at 113 2. DM, adjust insulins 3. Dyslipidemia, on statin 4. Hypertension, stable 5. Back / musculoskeletal pain ? Polymyagia rheumatica ? Plan 1. temporal artery biopsy pending. 2. Continue glycemic management 3. Continue pain control and antiemetics 4. Low molecular weight heparin for DVT prophylaxis 5. Consider empiric trial of steroids will defer to neurology Problems: Subjective 24 Hr Interval Summary Free Text/Dictation Headache improved, complaining of back pain and flank pain. Dull ache, not sharp or localized. No relation to urination. Exam/Review of Systems Vital Signs Vitals Vital Signs Date Time Temp Pulse Resp B/P Pulse Ox O2 Delivery O2 Flow Rate FiO2 05/13/16 07:52 98.3 69 17 96/54 93 05/10/16 20:00 Room Air Intake and Output 05/12/16 05/12/16 05/13/16 15:00 23:00 07:00 Intake Total 760 ml 720 ml Balance 760 ml 720 ml Exam Moderately obese lady awake alert oriented comfortable at rest VITAL SIGNS: per chart NECK: Supple. No JVD or lymphadenopathy. CARDIAC EXAM: S1, S2. No added sounds or murmurs. CHEST: clear bilaterally, No added sounds, rales or wheezes ABDOMEN: Soft, nontender. No guarding or rebound. EXTREMITIES: No cyanosis, clubbing or edema. NEUROLOGIC: Generalized weakness. No focal deficits. Results Result Diagram: 05/13/165 05/13/165 Results 24 hrs Laboratory Tests Test 05/12/16 17:18 05/12/16 19:40 05/13/16 02:12 05/13/16 04:45 Bedside Glucose 175 215 201 Anion Gap 13 Basophils # 0.0 Basophils % 0.4 Blood Morphology Comment Blood Urea Nitrogen 15 Calcium Level 9.0 Carbon Dioxide Level 29 Chloride Level 102 Creatinine 0.67 Eosinophils # 0.2 Eosinophils % 2.0 Erythrocyte Sedimentation Rate 113 H Glucose Level 153 Hematocrit 33.7 L Hemoglobin 11.5 L Lymphocytes # 1.8 Lymphocytes % 23.6 Magnesium Level 2.0 Mean Corpuscular Hemoglobin 27.8 L Mean Corpuscular Hemoglobin Concent 34.1 Mean Corpuscular Volume 81.5 L Mean Platelet Volume 9.7 Monocytes # 0.7 Monocytes % 9.0 Neutrophils # 4.9 Neutrophils % 65.0 Nucleated Red Blood Cells # 0.0 Nucleated Red Blood Cells % 0.0 Phosphorus Level 4.9 Platelet Count 255 Potassium Level 4.4 Red Blood Count 4.14 L Red Cell Distribution Width 12.8 Sodium Level 140 White Blood Count 7.5 # Test 05/13/16 07:51 05/13/16 11:58 Bedside Glucose 127 231 H Medications Medications Current Medications Lorazepam (Ativan) 0.5 mg Q6H PRN IV ANXIETY; Start 05/07/16 at 20:30 Ondansetron HCl (Zofran Inj) 4 mg Q6H PRN IV NAUSEA AND/OR VOMITING; Start at 20:30 Aspirin (Aspirin) 81 mg DAILY PO Last administered on 05/13/16 09:03; Admin Dose 81 MG; Start 05/08/16 at 09:00 Nitroglycerin (Nitroglycerin (Sl Tab) 0.4 Mg) 1 tab Q5M PRN SL CHEST PAIN; Start 05/07/16 at 20:30 Acetaminophen (Tylenol Tab) 650 mg Q6H PRN PO PAIN LEVEL 1-3 OR FEVER Last administered on 05/10/16 22:06; Admin Dose 650 MG; Start 05/07/16 at 20:30 Morphine Sulfate (morphine) 2 mg Q4H PRN IV PAIN LEVEL 7-10 Last administered on 05/13/16 12:04; Admin Dose 2 MG; Start 05/07/16 at 20:30 Docusate Sodium (Colace) 100 mg Q12H PRN PO CONSTIPATION Last administered on 15:19; Admin Dose 100 MG; Start 05/07/16 at 20:30 Famotidine (Pepcid) 20 mg Q12 PO Last administered on 05/13/16 08:50; Admin Dose 20 MG; Start 05/07/16 at 21:00 Hydralazine HCl (Apresoline) 10 mg Q6H PRN IV sbp > 160 Last administered on 04:56; Admin Dose 10 MG; Start 05/07/16 at 20:30 Atorvastatin Calcium (Lipitor) 10 mg QHS PO Last administered on 05/12/16 20: 27; Admin Dose 10 MG; Start 05/07/16 at 21:00 Diagnostic Test (Pha) (Accucheck) 1 ea 02 XX Last administered on 05/10/16 02: 54; Admin Dose 1 EA; Start 05/08/16 at 02:00 Miscellaneous Information 1 ea NOTE XX ; Start 05/07/16 at 21:00 Glucose (Glutose) 15 gm Q15M PRN PO DECREASED GLUCOSE; Start 05/07/16 at 21:00 Glucose (Glutose) 22.5 gm Q15M PRN PO DECREASED GLUCOSE; Start 05/07/16 at 21: 00 Dextrose (D50w Syringe) 25 ml Q15M PRN IV DECREASED GLUCOSE; Start 05/07/16 at 21:00 Dextrose (D50w Syringe) 50 ml Q15M PRN IV DECREASED GLUCOSE; Start 05/07/16 at 21:00 Glucagon (Glucagen) 1 mg Q15M PRN IM DECREASED GLUCOSE; Start 05/07/16 at 21:00 Glucose (Glutose) 15 gm Q15M PRN BUCCAL DECREASED GLUCOSE; Start 05/07/16 at 21 :00 Tramadol HCl (Ultram) 50 mg Q6H PRN PO PAIN Last administered on 05/13/16 08: 48; Admin Dose 50 MG; Start 05/08/16 at 00:30 Meclizine HCl (Antivert) 25 mg TID PO Last administered on 05/13/16 13:17; Admin Dose 25 MG; Start 05/10/16 at 13:00 Insulin Glargine (Lantus) 24 unit QAM SC Last administered on 05/13/16 09:00; Admin Dose 24 UNIT; Start 05/12/16 at 09:00 Topiramate (Topamax) 25 mg QHS PO Last administered on 05/12/16 20:27; Admin Dose 25 MG; Start 05/11/16 at 21:00 Enoxaparin Sodium (Lovenox) 30 mg DAILY SC Last administered on 05/13/16 08:50 ; Admin Dose 30 MG; Start 05/12/16 at 09:00 MAGNO SANDHU MD, [facility] May 13, 2016 13:50
--- NOTE | 2016-05-13 14:04 | CONS ---
Date/Time of Note Date/Time of Note DATE: 05/13/16 TIME: 14:02 Assessment/Plan Assessment/Plan Chief Complaint/Hosp Course Headache and dizziness Problems: Additional Assessment/Plan 66 year old female with history of uncontrolled diabetes, hypertension presenting with vertigo, blurred vision admitted for further work up. CTH on admission negative. MRI Brain shows increased FLAIR signal in left occipital cortex, no significant restricted diffusion. consideration on official report read subacute ischemic changes. changes also seen on FLAIR in posterior region could represent PRES - posterior reversible encephalopathy ESR elevated to: 65 CRP pending Start Topiramate 25 mg po qhs Temporal artery biopsy awaited Consultation Date/Type/Reason Admit Date/Time May 07, 2016 at 19:53 Initial Consult Date 05/08/16 Type of Consultation: Neurology Referring Provider: SHONDA ESPINOSA MD 24 HR Interval Summary Free Text/Dictation Improved in headache. Temporal artery biopsy is awaited, likely in AM Exam/Review of Systems Vital Signs Vitals Vital Signs Date Time Temp Pulse Resp B/P Pulse Ox O2 Delivery O2 Flow Rate FiO2 05/13/16 07:52 98.3 69 17 96/54 93 05/10/16 20:00 Room Air Intake and Output 05/12/16 05/12/16 05/13/16 15:00 23:00 07:00 Intake Total 760 ml 720 ml Balance 760 ml 720 ml Exam Constitutional: alert, oriented, well developed Psych: nl mood/affect Head: other (improving headache) Eyes: EOMI, nl conjunctiva, nl lids ENMT: nl external ears & nose, nl lips & teeth, nl nasal mucosa & septum Neck: non-tender, supple Respiratory: clear to auscultation, normal air movement Cardiovascular: nl pulses, regular rate and rhythm Gastrointestinal: nl liver, spleen, non-tender, soft Extremities: normal pulses 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, nl mental status, nl speech, nl strength Results Result Diagram: 05/13/165 05/13/16 0445 Results 24 hrs Laboratory Tests Test 05/12/16 17:18 05/12/16 19:40 05/13/16 02:12 05/13/16 04:45 Bedside Glucose 175 215 201 Anion Gap 13 Basophils # 0.0 Basophils % 0.4 Blood Morphology Comment Blood Urea Nitrogen 15 Calcium Level 9.0 Carbon Dioxide Level 29 Chloride Level 102 Creatinine 0.67 Eosinophils # 0.2 Eosinophils % 2.0 Erythrocyte Sedimentation Rate 113 H Glucose Level 153 Hematocrit 33.7 L Hemoglobin 11.5 L Lymphocytes # 1.8 Lymphocytes % 23.6 Magnesium Level 2.0 Mean Corpuscular Hemoglobin 27.8 L Mean Corpuscular Hemoglobin Concent 34.1 Mean Corpuscular Volume 81.5 L Mean Platelet Volume 9.7 Monocytes # 0.7 Monocytes % 9.0 Neutrophils # 4.9 Neutrophils % 65.0 Nucleated Red Blood Cells # 0.0 Nucleated Red Blood Cells % 0.0 Phosphorus Level 4.9 Platelet Count 255 Potassium Level 4.4 Red Blood Count 4.14 L Red Cell Distribution Width 12.8 Sodium Level 140 White Blood Count 7.5 # Test 05/13/16 07:51 05/13/16 11:58 Bedside Glucose 127 231 H Medications Medications Current Medications Lorazepam (Ativan) 0.5 mg Q6H PRN IV ANXIETY; Start 05/07/16 at 20:30 Ondansetron HCl (Zofran Inj) 4 mg Q6H PRN IV NAUSEA AND/OR VOMITING; Start at 20:30 Aspirin (Aspirin) 81 mg DAILY PO Last administered on 05/13/16 09:03; Admin Dose 81 MG; Start 05/08/16 at 09:00 Nitroglycerin (Nitroglycerin (Sl Tab) 0.4 Mg) 1 tab Q5M PRN SL CHEST PAIN; Start 05/07/16 at 20:30 Acetaminophen (Tylenol Tab) 650 mg Q6H PRN PO PAIN LEVEL 1-3 OR FEVER Last administered on 05/10/16 22:06; Admin Dose 650 MG; Start 05/07/16 at 20:30 Morphine Sulfate (morphine) 2 mg Q4H PRN IV PAIN LEVEL 7-10 Last administered on 05/13/16 12:04; Admin Dose 2 MG; Start 05/07/16 at 20:30 Docusate Sodium (Colace) 100 mg Q12H PRN PO CONSTIPATION Last administered on 15:19; Admin Dose 100 MG; Start 05/07/16 at 20:30 Famotidine (Pepcid) 20 mg Q12 PO Last administered on 05/13/16 08:50; Admin Dose 20 MG; Start 05/07/16 at 21:00 Hydralazine HCl (Apresoline) 10 mg Q6H PRN IV sbp > 160 Last administered on 04:56; Admin Dose 10 MG; Start 05/07/16 at 20:30 Atorvastatin Calcium (Lipitor) 10 mg QHS PO Last administered on 05/12/16 20: 27; Admin Dose 10 MG; Start 05/07/16 at 21:00 Diagnostic Test (Pha) (Accucheck) 1 ea 02 XX Last administered on 05/10/16 02: 54; Admin Dose 1 EA; Start 05/08/16 at 02:00 Miscellaneous Information 1 ea NOTE XX ; Start 05/07/16 at 21:00 Glucose (Glutose) 15 gm Q15M PRN PO DECREASED GLUCOSE; Start 05/07/16 at 21:00 Glucose (Glutose) 22.5 gm Q15M PRN PO DECREASED GLUCOSE; Start 05/07/16 at 21: 00 Dextrose (D50w Syringe) 25 ml Q15M PRN IV DECREASED GLUCOSE; Start 05/07/16 at 21:00 Dextrose (D50w Syringe) 50 ml Q15M PRN IV DECREASED GLUCOSE; Start 05/07/16 at 21:00 Glucagon (Glucagen) 1 mg Q15M PRN IM DECREASED GLUCOSE; Start 05/07/16 at 21:00 Glucose (Glutose) 15 gm Q15M PRN BUCCAL DECREASED GLUCOSE; Start 05/07/16 at 21 :00 Tramadol HCl (Ultram) 50 mg Q6H PRN PO PAIN Last administered on 05/13/16 08: 48; Admin Dose 50 MG; Start 05/08/16 at 00:30 Meclizine HCl (Antivert) 25 mg TID PO Last administered on 05/13/16 13:17; Admin Dose 25 MG; Start 05/10/16 at 13:00 Insulin Glargine (Lantus) 24 unit QAM SC Last administered on 05/13/16 09:00; Admin Dose 24 UNIT; Start 05/12/16 at 09:00 Topiramate (Topamax) 25 mg QHS PO Last administered on 05/12/16 20:27; Admin Dose 25 MG; Start 05/11/16 at 21:00 Enoxaparin Sodium (Lovenox) 30 mg DAILY SC Last administered on 05/13/16 08:50 ; Admin Dose 30 MG; Start 05/12/16 at 09:00 MAIRA KIM MD May 13, 2016 14:04
[2016-05-13 17:17] LABS: ADD UMIC YES; URINE BILIRUBIN (Dip) NEGATIVE (NEGATIVE); URINE BLOOD (Dip) NEGATIVE (NEGATIVE); URINE COLOR LT. YELLOW (YELLOW); URINE GLUCOSE (Dip) NEGATIVE (NEGATIVE); URINE KETONES (Dip) NEGATIVE (NEGATIVE); URINE LEUKOCYTE ESTERASE (Dip) TRACE (NEGATIVE); URINE NITRITE (Dip) POSITIVE (NEGATIVE); URINE TOTAL PROTEIN (Dip) NEGATIVE (NEGATIVE); URINE UROBILINOGEN (Dip) 0.2 E.U./dL (0.1-1.0)
[2016-05-13 18:33] LABS: BACTERIA,URINE MANY; SQUAMOUS EPITHELIAL CELL,UR FEW; URINE RBCS 0-2 /HPF (0)
[2016-05-13 20:15] VITALS: BP 132/60; RESP 19
[2016-05-13] MEDS: ATORVASTATIN 10 MG TAB PO SCH (20:45)
[2016-05-13] MEDS: TOPIRAMATE 25 MG TAB PO SCH (20:46)
[2016-05-14] MEDS: ACCUCHECK AT 2AM (Patients on SS coverage) XX SCH (01:57)
[2016-05-14] MEDS: FAMOTIDINE 20 MG TAB PO SCH ×2 (08:16→20:26)
[2016-05-14] MEDS: ASPIRIN 81 MG TAB PO SCH (08:16)
[2016-05-14] MEDS: morphine 2 MG INJ IV PRN ×4 (08:16→22:17)
[2016-05-14] MEDS: MECLIZINE 25 MG TAB PO SCH ×3 (08:17→20:26)
[2016-05-14] MEDS: ENOXAPARIN 30 MG/0.3 ML SYG SC SCH (08:18)
[2016-05-14 08:19] VITALS: BP 150/65; RESP 20
[2016-05-14] MEDS: INSULIN ASPART [NOVOLOG] 3 ML PEN SC SCH ×7 (08:24→20:34)
[2016-05-14] MEDS: INSULIN GLARGINE [LANtus] 3 ML PEN SC SCH (08:27)
--- NOTE | 2016-05-14 09:30 | RADRPT ---
PROCEDURE: XR Chest. CLINICAL INDICATION: CHF TECHNIQUE: Single AP portable chest COMPARISON: None. FINDINGS: The cardiomediastinal silhouette is within normal limits..The lungs are clear though pleural effusio n or focal consolidation. No pneumothorax. The osseous structures and soft tissues are unremarkable. IMPRESSION: 1. No evidence for active cardiopulmonary disease. RPTAT:AAJJ Physician Lin Date Time Electronically viewed and signed by Physician Lin on 05/14/2016 09:29 MARTHA/
--- NOTE | 2016-05-14 12:11 | CONS ---
Date/Time of Note Date/Time of Note DATE: 05/14/16 TIME: 12:09 Consult Date/Type/Reason Admit Date/Time May 07, 2016 at 19:53 Initial Consult Date 05/08/16 Type of Consultation: Neurology Reason for Consultation headaches, vertigo, blurred vision Ordering Provider: SHONDA ESPINOSA MD Subjective headache improved persistent dizziness today complains of lower back pain as well persistent blurred vision Objective Vital Signs Date Time Temp Pulse Resp B/P Pulse Ox O2 Delivery O2 Flow Rate FiO2 05/14/16 08:19 98.3 78 20 150/65 92 05/10/16 20:00 Room Air Intake and Output 05/13/16 05/13/16 05/14/16 15:00 23:00 07:00 Intake Total 740 ml 600 ml Output Total 550 ml Balance 190 ml 600 ml Constitutional: alert, oriented, well developed Psych: nl mood/affect Head: other (improving headache) Eyes: EOMI, nl conjunctiva, nl lids ENMT: nl external ears & nose, nl lips & teeth, nl nasal mucosa & septum Neck: non-tender, supple Respiratory: clear to auscultation, normal air movement Cardiovascular: nl pulses, regular rate and rhythm Gastrointestinal: nl liver, spleen, non-tender, soft Extremities: normal pulses Neurological: SOLUTION ADVISOR II-XII 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 YELLOW Urine Glucose NEGATIVE Urine Hemoglobin NEGATIVE Urine Ketones NEGATIVE Urine Leukocyte Esterase TRACE H Urine Microscopic RBC 0-2 Urine Microscopic WBC 2-5 Urine Nitrite POSITIVE H Urine Specific [place] 1.015 Urine Squamous Epithelial Cells FEW Urine Total Protein NEGATIVE Urine Urobilinogen 0.2 E.U./dL Urine pH 5.5 Bedside Glucose 195 157 235 H Test 05/14/16 01:53 05/14/16 07:55 05/14/16 12:02 Bedside Glucose 226 H 198 219 Medications Current Medications Lorazepam (Ativan) 0.5 mg Q6H PRN IV ANXIETY; Start 05/07/16 at 20:30 Ondansetron HCl (Zofran Inj) 4 mg Q6H PRN IV NAUSEA AND/OR VOMITING; Start at 20:30 Aspirin (Aspirin) 81 mg DAILY PO Last administered on 05/14/16 08:16; Admin Dose 81 MG; Start 05/08/16 at 09:00 Nitroglycerin (Nitroglycerin (Sl Tab) 0.4 Mg) 1 tab Q5M PRN SL CHEST PAIN; Start 05/07/16 at 20:30 Acetaminophen (Tylenol Tab) 650 mg Q6H PRN PO PAIN LEVEL 1-3 OR FEVER Last administered on 05/10/16 22:06; Admin Dose 650 MG; Start 05/07/16 at 20:30 Morphine Sulfate (morphine) 2 mg Q4H PRN IV PAIN LEVEL 7-10 Last administered on 05/14/16 08:16; Admin Dose 2 MG; Start 05/07/16 at 20:30 Docusate Sodium (Colace) 100 mg Q12H PRN PO CONSTIPATION Last administered on 15:19; Admin Dose 100 MG; Start 05/07/16 at 20:30 Famotidine (Pepcid) 20 mg Q12 PO Last administered on 05/14/16 08:16; Admin Dose 20 MG; Start 05/07/16 at 21:00 Hydralazine HCl (Apresoline) 10 mg Q6H PRN IV sbp > 160 Last administered on 04:56; Admin Dose 10 MG; Start 05/07/16 at 20:30 Atorvastatin Calcium (Lipitor) 10 mg QHS PO Last administered on 05/13/16 20: 45; Admin Dose 10 MG; Start 05/07/16 at 21:00 Diagnostic Test (Pha) (Accucheck) 1 ea 02 XX Last administered on 05/14/16 01: 57; Admin Dose 1 EA; Start 05/08/16 at 02:00 Miscellaneous Information 1 ea NOTE XX ; Start 05/07/16 at 21:00 Glucose (Glutose) 15 gm Q15M PRN PO DECREASED GLUCOSE; Start 05/07/16 at 21:00 Glucose (Glutose) 22.5 gm Q15M PRN PO DECREASED GLUCOSE; Start 05/07/16 at 21: 00 Dextrose (D50w Syringe) 25 ml Q15M PRN IV DECREASED GLUCOSE; Start 05/07/16 at 21:00 Dextrose (D50w Syringe) 50 ml Q15M PRN IV DECREASED GLUCOSE; Start 05/07/16 at 21:00 Glucagon (Glucagen) 1 mg Q15M PRN IM DECREASED GLUCOSE; Start 05/07/16 at 21:00 Glucose (Glutose) 15 gm Q15M PRN BUCCAL DECREASED GLUCOSE; Start 05/07/16 at 21 :00 Tramadol HCl (Ultram) 50 mg Q6H PRN PO PAIN Last administered on 05/13/16 23: 36; Admin Dose 50 MG; Start 05/08/16 at 00:30 Meclizine HCl (Antivert) 25 mg TID PO Last administered on 05/14/16 08:17; Admin Dose 25 MG; Start 05/10/16 at 13:00 Insulin Glargine (Lantus) 24 unit QAM SC Last administered on 05/14/16 08:27; Admin Dose 24 UNIT; Start 05/12/16 at 09:00 Topiramate (Topamax) 25 mg QHS PO Last administered on 05/13/16 20:46; Admin Dose 25 MG; Start 05/11/16 at 21:00 Enoxaparin Sodium (Lovenox) 30 mg DAILY SC Last administered on 05/14/16 08:18 ; Admin Dose 30 MG; Start 05/12/16 at 09:00 Assessment/Plan Chief Complaint/Hosp Course 66 year old female with history of uncontrolled diabetes, hypertension presenting with vertigo, blurred vision admitted for further work up. CTH on admission negative. MRI Brain shows increased FLAIR signal in left occipital cortex, no significant restricted diffusion. consideration on official report read subacute ischemic changes. changes also seen on FLAIR in posterior region could represent PRES - posterior reversible encephalopathy ESR elevated to: 65 repeat ESR elevated to: 113 CRP continue on Topiramate 25 mg po qhs Temporal artery biopsy awaited Problems: SHAE CASILLAS MD May 14, 2016 12:11
[2016-05-14] MEDS: traMADol 50 MG TAB PO PRN (12:13)
--- NOTE | 2016-05-14 15:52 | PN ---
Date/Time of Note Date/Time of Note DATE: 05/14/16 TIME: 15:50 Assessment/Plan VTE Prophylaxis VTE Prophylaxis Intervention: SCD's Lines/Catheters IV Catheter Type (from Nrs): Saline Lock Urinary Cath still in place: No Assessment/Plan Assessment/Plan 1. Left sided headache with MRI abnormality at left occipital lobe, likely migraine, awaiting for biopsy to r/o temporal arteritis, on topomax 2. DM, adjust insulins 3. Dyslipidemia, on statin 4. Hypertension, stable Subjective 24 Hr Interval Summary Free Text/Dictation no headache, still with dizziness Exam/Review of Systems Vital Signs Vitals Vital Signs Date Time Temp Pulse Resp B/P Pulse Ox O2 Delivery O2 Flow Rate FiO2 05/14/16 08:19 98.3 78 20 150/65 92 05/10/16 20:00 Room Air Intake and Output 05/13/16 05/13/16 05/14/16 15:00 23:00 07:00 Intake Total 740 ml 600 ml Output Total 550 ml Balance 190 ml 600 ml Exam Constitutional: alert, oriented Psych: nl mood/affect, no complaints Head: atraumatic, normocephalic Eyes: EOMI, PERRL, nl conjunctiva, nl lids, nl sclera ENMT: mucosa pink and moist, nl external ears & nose, nl lips & teeth, nl nasal mucosa & septum Neck: non-tender, supple Respiratory: clear to auscultation, normal air movement, No congested cough, No crackles/rales, No diminished breath sounds, No intercostal retraction, No labored breathing, No respirations, No tactile fremitus, No wheezing Cardiovascular: nl pulses, regular rate and rhythm, No S3, No S4, No bruits, No diastolic murmur, No edema, No gallop, No irregular rhythm, No jugular venous distention (JVD), No murmurs/extra sounds, No rub, No systolic murmur Gastrointestinal: nl liver, spleen, non-tender, soft, No ascites, No bowel sounds, No distended, No firm, No hepatomegaly, No mass , No rebound or guarding, No splenomegaly, No surgical scars, No tender Musculoskeletal: nl extremities to inspection Extremities: normal pulses, No calf tenderness, No clubbing, No cyanosis, No edema, No palpable cord, No pitting pedal edema, No tenderness 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 YELLOW Urine Glucose NEGATIVE Urine Hemoglobin NEGATIVE Urine Ketones NEGATIVE Urine Leukocyte Esterase TRACE H Urine Microscopic RBC 0-2 Urine Microscopic WBC 2-5 Urine Nitrite POSITIVE H Urine Specific [place] 1.015 Urine Squamous Epithelial Cells FEW Urine Total Protein NEGATIVE Urine Urobilinogen 0.2 E.U./dL Urine pH 5.5 Bedside Glucose 195 157 235 H Test 05/14/16 01:53 05/14/16 07:55 05/14/16 12:02 Bedside Glucose 226 H 198 219 Medications Medications Current Medications Lorazepam (Ativan) 0.5 mg Q6H PRN IV ANXIETY; Start 05/07/16 at 20:30 Ondansetron HCl (Zofran Inj) 4 mg Q6H PRN IV NAUSEA AND/OR VOMITING; Start at 20:30 Aspirin (Aspirin) 81 mg DAILY PO Last administered on 05/14/16 08:16; Admin Dose 81 MG; Start 05/08/16 at 09:00 Nitroglycerin (Nitroglycerin (Sl Tab) 0.4 Mg) 1 tab Q5M PRN SL CHEST PAIN; Start 05/07/16 at 20:30 Acetaminophen (Tylenol Tab) 650 mg Q6H PRN PO PAIN LEVEL 1-3 OR FEVER Last administered on 05/10/16 22:06; Admin Dose 650 MG; Start 05/07/16 at 20:30 Morphine Sulfate (morphine) 2 mg Q4H PRN IV PAIN LEVEL 7-10 Last administered on 05/14/16 13:05; Admin Dose 2 MG; Start 05/07/16 at 20:30 Docusate Sodium (Colace) 100 mg Q12H PRN PO CONSTIPATION Last administered on 15:19; Admin Dose 100 MG; Start 05/07/16 at 20:30 Famotidine (Pepcid) 20 mg Q12 PO Last administered on 05/14/16 08:16; Admin Dose 20 MG; Start 05/07/16 at 21:00 Hydralazine HCl (Apresoline) 10 mg Q6H PRN IV sbp > 160 Last administered on 04:56; Admin Dose 10 MG; Start 05/07/16 at 20:30 Atorvastatin Calcium (Lipitor) 10 mg QHS PO Last administered on 05/13/16 20: 45; Admin Dose 10 MG; Start 05/07/16 at 21:00 Diagnostic Test (Pha) (Accucheck) 1 ea 02 XX Last administered on 05/14/16 01: 57; Admin Dose 1 EA; Start 05/08/16 at 02:00 Miscellaneous Information 1 ea NOTE XX ; Start 05/07/16 at 21:00 Glucose (Glutose) 15 gm Q15M PRN PO DECREASED GLUCOSE; Start 05/07/16 at 21:00 Glucose (Glutose) 22.5 gm Q15M PRN PO DECREASED GLUCOSE; Start 05/07/16 at 21: 00 Dextrose (D50w Syringe) 25 ml Q15M PRN IV DECREASED GLUCOSE; Start 05/07/16 at 21:00 Dextrose (D50w Syringe) 50 ml Q15M PRN IV DECREASED GLUCOSE; Start 05/07/16 at 21:00 Glucagon (Glucagen) 1 mg Q15M PRN IM DECREASED GLUCOSE; Start 05/07/16 at 21:00 Glucose (Glutose) 15 gm Q15M PRN BUCCAL DECREASED GLUCOSE; Start 05/07/16 at 21 :00 Tramadol HCl (Ultram) 50 mg Q6H PRN PO PAIN Last administered on 05/14/16 12: 13; Admin Dose 50 MG; Start 05/08/16 at 00:30 Meclizine HCl (Antivert) 25 mg TID PO Last administered on 05/14/16 12:13; Admin Dose 25 MG; Start 05/10/16 at 13:00 Insulin Glargine (Lantus) 24 unit QAM SC Last administered on 05/14/16 08:27; Admin Dose 24 UNIT; Start 05/12/16 at 09:00 Topiramate (Topamax) 25 mg QHS PO Last administered on 05/13/16 20:46; Admin Dose 25 MG; Start 05/11/16 at 21:00 Enoxaparin Sodium (Lovenox) 30 mg DAILY SC Last administered on 05/14/16t 08:18 ; Admin Dose 30 MG; Start 05/12/16 at 09:00 WILBERTO HERNANDEZ MD May 14, 2016 15:52
[2016-05-14 19:42] VITALS: BP 112/53; RESP 20
[2016-05-14] MEDS: ATORVASTATIN 10 MG TAB PO SCH (20:26)
[2016-05-14] MEDS: TOPIRAMATE 25 MG TAB PO SCH (20:26)
[2016-05-15] MEDS: traMADol 50 MG TAB PO PRN (00:21)
[2016-05-15] MEDS: ACCUCHECK AT 2AM (Patients on SS coverage) XX SCH (02:00)
[2016-05-15] MEDS: morphine 2 MG INJ IV PRN ×4 (02:59→22:02)
[2016-05-15] MEDS: DOCUSATE SODIUM 100 MG CAP PO PRN ×2 (05:35→21:22)
[2016-05-15 07:38] VITALS: BP 129/60; RESP 18
[2016-05-15] MEDS: INSULIN GLARGINE [LANtus] 3 ML PEN SC SCH (08:37)
[2016-05-15] MEDS: ENOXAPARIN 30 MG/0.3 ML SYG SC SCH (08:38)
[2016-05-15] MEDS: INSULIN ASPART [NOVOLOG] 3 ML PEN SC SCH ×7 (08:39→21:31)
[2016-05-15] MEDS: ASPIRIN 81 MG TAB PO SCH (08:40)
[2016-05-15] MEDS: MECLIZINE 25 MG TAB PO SCH ×3 (08:40→21:19)
[2016-05-15] MEDS: FAMOTIDINE 20 MG TAB PO SCH ×2 (08:40→21:19)
--- NOTE | 2016-05-15 12:49 | CONS ---
Date/Time of Note Date/Time of Note DATE: 05/15/16 TIME: 12:43 Consult Date/Type/Reason Admit Date/Time May 07, 2016 at 19:53 Initial Consult Date 05/08/16 Type of Consultation: Neurology Reason for Consultation headache, blurred vision, vertigo Ordering Provider: SHONDA ESPINOSA MD Subjective improved symptoms today denies headache, still has blurred vision reportedly improved + back pain Objective Vital Signs Date Time Temp Pulse Resp B/P Pulse Ox O2 Delivery O2 Flow Rate FiO2 05/15/16 07:38 98.1 71 18 129/60 95 Intake and Output 05/14/16 05/14/16 05/15/16 15:00 23:00 07:00 Intake Total 600 ml Balance 600 ml Constitutional: alert, oriented, well developed Psych: nl mood/affect Head: other (improving headache) Eyes: EOMI, nl conjunctiva, nl lids ENMT: nl external ears & nose, nl lips & teeth, nl nasal mucosa & septum Neck: non-tender, supple Respiratory: clear to auscultation, normal air movement Cardiovascular: nl pulses, regular rate and rhythm Gastrointestinal: nl liver, spleen, non-tender, soft Extremities: normal pulses Neurological: ROTARY DRYER OPERATOR II-XII 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, nl mental status, nl speech, nl strength Results/Medications Result Diagram: 05/13/1644405/13/16444 Results 24 hrs Laboratory Tests Test 05/14/16 17:01 05/14/16 20:32 05/15/16 08:00 05/15/16 12:06 Bedside Glucose 133 131 198 219 Medications Current Medications Lorazepam (Ativan) 0.5 mg Q6H PRN IV ANXIETY; Start 05/07/16 at 20:30 Ondansetron HCl (Zofran Inj) 4 mg Q6H PRN IV NAUSEA AND/OR VOMITING; Start at 20:30 Aspirin (Aspirin) 81 mg DAILY PO Last administered on 05/15/16t 08:40; Admin Dose 81 MG; Start 05/08/16 at 09:00 Nitroglycerin (Nitroglycerin (Sl Tab) 0.4 Mg) 1 tab Q5M PRN SL CHEST PAIN; Start 05/07/16 at 20:30 Acetaminophen (Tylenol Tab) 650 mg Q6H PRN PO PAIN LEVEL 1-3 OR FEVER Last administered on 05/10/16 22:06; Admin Dose 650 MG; Start 05/07/16 at 20:30 Morphine Sulfate (morphine) 2 mg Q4H PRN IV PAIN LEVEL 7-10 Last administered on 05/15/16 08:40; Admin Dose 2 MG; Start 05/07/16 at 20:30 Docusate Sodium (Colace) 100 mg Q12H PRN PO CONSTIPATION Last administered on 05:35; Admin Dose 100 MG; Start 05/07/16 at 20:30 Famotidine (Pepcid) 20 mg Q12 PO Last administered on 05/15/16 08:40; Admin Dose 20 MG; Start 05/07/16 at 21:00 Hydralazine HCl (Apresoline) 10 mg Q6H PRN IV sbp > 160 Last administered on 04:56; Admin Dose 10 MG; Start 05/07/16 at 20:30 Atorvastatin Calcium (Lipitor) 10 mg QHS PO Last administered on 05/14/16 20: 26; Admin Dose 10 MG; Start 05/07/16 at 21:00 Diagnostic Test (Pha) (Accucheck) 1 ea 02 XX Last administered on 05/14/16 01: 57; Admin Dose 1 EA; Start 05/08/16 at 02:00 Miscellaneous Information 1 ea NOTE XX ; Start 05/07/16 at 21:00 Glucose (Glutose) 15 gm Q15M PRN PO DECREASED GLUCOSE; Start 05/07/16 at 21:00 Glucose (Glutose) 22.5 gm Q15M PRN PO DECREASED GLUCOSE; Start 05/07/16 at 21: 00 Dextrose (D50w Syringe) 25 ml Q15M PRN IV DECREASED GLUCOSE; Start 05/07/16 at 21:00 Dextrose (D50w Syringe) 50 ml Q15M PRN IV DECREASED GLUCOSE; Start 05/07/16 at 21:00 Glucagon (Glucagen) 1 mg Q15M PRN IM DECREASED GLUCOSE; Start 05/07/16 at 21:00 Glucose (Glutose) 15 gm Q15M PRN BUCCAL DECREASED GLUCOSE; Start 05/07/16 at 21 :00 Tramadol HCl (Ultram) 50 mg Q6H PRN PO PAIN Last administered on 05/15/16 00: 21; Admin Dose 50 MG; Start 05/08/16 at 00:30 Meclizine HCl (Antivert) 25 mg TID PO Last administered on 05/15/16 12:26; Admin Dose 25 MG; Start 05/10/16 at 13:00 Insulin Glargine (Lantus) 24 unit QAM SC Last administered on 05/15/16 08:37; Admin Dose 24 UNIT; Start 05/12/16 at 09:00 Topiramate (Topamax) 25 mg QHS PO Last administered on 05/14/16 20:26; Admin Dose 25 MG; Start 05/11/16 at 21:00 Enoxaparin Sodium (Lovenox) 30 mg DAILY SC Last administered on 05/15/16 08:38 ; Admin Dose 30 MG; Start 05/12/16 at 09:00 Assessment/Plan Chief Complaint/Hosp Course 66 year old female with history of uncontrolled diabetes, hypertension presenting with vertigo, blurred vision admitted for further work up. CTH on admission negative. MRI Brain shows increased FLAIR signal in left occipital cortex, no significant restricted diffusion. consideration on official report read subacute ischemic changes. changes also seen on FLAIR in posterior region could represent PRES - posterior reversible encephalopathy ESR elevated to: 65 repeat ESR elevated to: 113 CRP continue on Topiramate 25 mg po qhs Temporal artery biopsy- was unable to obtain by IR, may require vascular surgery to perform biopsy to be consulted today Problems: SHAE CASILLAS MD May 15, 2016 12:49
--- NOTE | 2016-05-15 16:15 | PN ---
Date/Time of Note Date/Time of Note DATE: 05/15/16 TIME: 16:13 Assessment/Plan VTE Prophylaxis VTE Prophylaxis Intervention: SCD's Lines/Catheters [facility] [place] [facility] Urinary Cath still in place: No Assessment/Plan Assessment/Plan 1. Left sided headache with MRI abnormality at left occipital lobe, likely migraine, r/o temporal arteritis, on topomax. case discussed with neurology and vascular surgeon today, biopsy tomorrow 2. DM, adjust insulins 3. Dyslipidemia, on statin 4. Hypertension, stable Subjective 24 Hr Interval Summary Free Text/Dictation still dizzy, no headache Exam/Review of Systems Vital Signs Vitals Vital Signs Date Time Temp Pulse Resp B/P Pulse Ox O2 Delivery O2 Flow Rate FiO2 05/15/16 07:38 98.1 71 18 129/60 95 Intake and Output 05/14/16 05/14/16 05/15/16 15:00 23:00 07:00 Intake Total 600 ml Balance 600 ml Exam Constitutional: alert, oriented, well developed Psych: nl mood/affect, no complaints Head: atraumatic, normocephalic Eyes: EOMI, PERRL, nl conjunctiva, nl lids, nl sclera ENMT: mucosa pink and moist, nl external ears & nose, nl lips & teeth, nl nasal mucosa & septum Neck: non-tender, supple Respiratory: clear to auscultation, normal air movement, No congested cough, No crackles/rales, No diminished breath sounds, No intercostal retraction, No labored breathing, No respirations, No tactile fremitus, No wheezing Cardiovascular: nl pulses, regular rate and rhythm, No S3, No S4, No bruits, No diastolic murmur, No edema, No gallop, No irregular rhythm, No jugular venous distention (JVD), No murmurs/extra sounds, No rub, No systolic murmur Gastrointestinal: nl liver, spleen, non-tender, soft, No ascites, No bowel sounds, No distended, No firm, No hepatomegaly, No mass , No rebound or guarding, No splenomegaly, No surgical scars, No tender Musculoskeletal: nl extremities to inspection Neurological: DINING ROOM MANAGER II-XII intact, nl mental status, nl speech, nl strength Skin: nl turgor, rash or lesions Lymph: nl lymph nodes Results Result Diagram: 05/13/16 0445 05/13/16 0445 Results 24 hrs Laboratory Tests Test 05/14/16 17:01 05/14/16 20:32 05/15/16 08:00 05/15/16 12:06 Bedside Glucose 133 131 198 219 Medications Medications Current Medications Lorazepam (Ativan) 0.5 mg Q6H PRN IV ANXIETY; Start 05/07/16 at 20:30 Ondansetron HCl (Zofran Inj) 4 mg Q6H PRN IV NAUSEA AND/OR VOMITING; Start at 20:30 Aspirin (Aspirin) 81 mg DAILY PO Last administered on 05/15/16 08:40; Admin Dose 81 MG; Start 05/08/16 at 09:00 Nitroglycerin (Nitroglycerin (Sl Tab) 0.4 Mg) 1 tab Q5M PRN SL CHEST PAIN; Start 05/07/16 at 20:30 Acetaminophen (Tylenol Tab) 650 mg Q6H PRN PO PAIN LEVEL 1-3 OR FEVER Last administered on 05/10/16 22:06; Admin Dose 650 MG; Start 05/07/16 at 20:30 Morphine Sulfate (morphine) 2 mg Q4H PRN IV PAIN LEVEL 7-10 Last administered on 05/15/16 08:40; Admin Dose 2 MG; Start 05/07/16 at 20:30 Docusate Sodium (Colace) 100 mg Q12H PRN PO CONSTIPATION Last administered on 05:35; Admin Dose 100 MG; Start 05/07/16 at 20:30 Famotidine (Pepcid) 20 mg Q12 PO Last administered on 05/15/16 08:40; Admin Dose 20 MG; Start 05/07/16 at 21:00 Hydralazine HCl (Apresoline) 10 mg Q6H PRN IV sbp > 160 Last administered on 04:56; Admin Dose 10 MG; Start 05/07/16 at 20:30 Atorvastatin Calcium (Lipitor) 10 mg QHS PO Last administered on 05/14/16 20: 26; Admin Dose 10 MG; Start 05/07/16 at 21:00 Diagnostic Test (Pha) (Accucheck) 1 ea 02 XX Last administered on 05/14/16 01: 57; Admin Dose 1 EA; Start 05/08/16 at 02:00 Miscellaneous Information 1 ea NOTE XX ; Start 05/07/16 at 21:00 Glucose (Glutose) 15 gm Q15M PRN PO DECREASED GLUCOSE; Start 05/07/16 at 21:00 Glucose (Glutose) 22.5 gm Q15M PRN PO DECREASED GLUCOSE; Start 05/07/16 at 21: 00 Dextrose (D50w Syringe) 25 ml Q15M PRN IV DECREASED GLUCOSE; Start 05/07/16 at 21:00 Dextrose (D50w Syringe) 50 ml Q15M PRN IV DECREASED GLUCOSE; Start 05/07/16 at 21:00 Glucagon (Glucagen) 1 mg Q15M PRN IM DECREASED GLUCOSE; Start 05/07/16 at 21:00 Glucose (Glutose) 15 gm Q15M PRN BUCCAL DECREASED GLUCOSE; Start 05/07/16 at 21 :00 Tramadol HCl (Ultram) 50 mg Q6H PRN PO PAIN Last administered on 05/15/16 00: 21; Admin Dose 50 MG; Start 05/08/16 at 00:30 Meclizine HCl (Antivert) 25 mg TID PO Last administered on 05/15/16 12:26; Admin Dose 25 MG; Start 05/10/16 at 13:00 Insulin Glargine (Lantus) 24 unit QAM SC Last administered on 05/15/16 08:37; Admin Dose 24 UNIT; Start 05/12/16 at 09:00 Topiramate (Topamax) 25 mg QHS PO Last administered on 05/14/16 20:26; Admin Dose 25 MG; Start 05/11/16 at 21:00 Enoxaparin Sodium (Lovenox) 30 mg DAILY SC Last administered on 05/15/16 08:38 ; Admin Dose 30 MG; Start 05/12/16 at 09:00 WILBERTO HERNANDEZ MD May 15, 2016 16:15
--- NOTE | 2016-05-15 18:02 | HP ---
DATE OF ADMISSION: 05/07/2016 TYPE OF CONSULTATION: Vascular surgery consultation. Dear doctors: HISTORY OF PRESENT ILLNESS: Mrs. Torres is a 66-year-old female with a history of morbid obesity and diabetes in which she has had recent episodes of vertigo and left eye blurred vision in which jimenez s been intolerable. At that time, patient had gone to [facility] in which she was ev aluated and discharged home without any further recommendations. She unfortunately returned back to the hospital for evaluation for ongoing of her symptoms of vertigo and difficulty with having a pk rred vision and significant headache that essentially travels from her temporal area all the way to her occipital per patient's reporting. At the moment, patient denies shortness of breath, some disc omfort in her generalized headache and denies nausea, vomiting, fever, chills. She denies rest pain ; however, she does have some disabling claudication specifically left which is worse than the right . She also complains of left lower extremity swelling that she has had for some time now. She is c urrently also having low back pain and generalized abdominal discomfort in which she says that has b een gradually getting better, however, still a little bit uncomfortable. PAST MEDICAL HISTORY: Entailed diabetes, hypertension, morbidly obese, dizziness. PAST SURGICAL HISTORY: Hernia repair. FAMILY HISTORY: Positive for diabetes, coronary artery disease, and hypertension. SOCIAL HISTORY: Denies tobacco, alcohol, or illicit drug use. PHYSICAL EXAMINATION: GENERAL: Alert and oriented x3, no apparent distress. HEENT: Normocephalic, atraumatic. PERRLA, EOMI, blurry vision with the left eye. Denies amaurosis fugax. NECK: Supple. No carotid bruit. PULMONARY: Clear to auscultation bilaterally. No crackles. CARDIOVASCULAR: S1, S2 present. No murmurs. ABDOMEN: Soft, nontender, nondistended. Bowel sounds positive. Truncal obesity. EXTREMITIES: Palpable femoral pulses. Nonpalpable pedal pulses. Motor and sensory intact. Capill amarilys refill 3 seconds. Presence of varicose veins from the foot up to the midcalf area. Edema 1+ of both legs. Upper extremities: Palpable brachial pulse, decreased left radial pulse compared to th e right radial plus. Motor and sensory intact. Capillary refill 2 to 3 seconds. Motor and sensory is the same of bilateral upper extremities. NEUROLOGIC: Cranial nerves II through XII are intact. No slurred speech. Minimal blurry vision at the moment with the left eye. ASSESSMENT AND PLAN: Temporal arteritis. It seems that the patient has had some findings sug gestions of temporal arthritis, specifically with recent vision changes and some vertigo. She does have elevated ESR levels and CRP levels, has been evaluated with neurology. Recommendations for bio psy have been asked and it is reasonable to go ahead and perform the biopsy. We will plan to schedu le the patient for bilateral temporal artery biopsies in order to increase the of a diagnosis. Optimize vascular status (Blood pressure meds and nutrition, exercise, sugar control, weight loss, a ntiplatelets). Discussed findings with plan and management with the patient, she understands. Thank you for allowing us to participate in the care of your patient. Please call with any question s. I would also recommend obtaining a carotid ultrasound to better delineate her carotid anatomy. Dictated By: MYRA SIMPSON/SUSAN Conf#: [id number] DID#: [id number]
[2016-05-15 20:25] VITALS: BP 124/56; RESP 20
[2016-05-15] MEDS: ATORVASTATIN 10 MG TAB PO SCH (21:19)
[2016-05-15] MEDS: TOPIRAMATE 25 MG TAB PO SCH (21:19)
[2016-05-15] MEDS ORDERED: BISACODYL (EC) 5 MG TAB PO ONE (22:30)
[2016-05-15] MEDS ORDERED: MAGNESIUM HYDROXIDE 30ML CUP PO ONE (22:30)
[2016-05-15] MEDS ORDERED: MAGNESIUM HYDROXIDE 30ML CUP PO PRN (22:30)
[2016-05-16] VITALS (13 sets, daily range): BP systolic 91–135; BP diastolic 46–63; PULSE 68–74; RESP 12–29
[2016-05-16] MEDS: ACCUCHECK AT 2AM (Patients on SS coverage) XX SCH (02:12)
[2016-05-16] MEDS: INSULIN ASPART [NOVOLOG] 3 ML PEN SC SCH ×7 (07:35→21:22)
[2016-05-16] MEDS: ENOXAPARIN 30 MG/0.3 ML SYG SC SCH (08:13)
[2016-05-16] MEDS: MECLIZINE 25 MG TAB PO SCH ×3 (08:14→21:15)
[2016-05-16] MEDS: FAMOTIDINE 20 MG TAB PO SCH ×2 (08:14→21:16)
[2016-05-16] MEDS: ASPIRIN 81 MG TAB PO SCH (08:14)
[2016-05-16] MEDS: morphine 2 MG INJ IV PRN (08:17)
[2016-05-16] MEDS: INSULIN GLARGINE [LANtus] 3 ML PEN SC SCH (08:30)
[2016-05-16] MEDS ORDERED: VANCOMYCIN 1 GM in NS 250 ML IVPB SCH (11:30)
[2016-05-16] MEDS ORDERED: VANCOMYCIN 1 GM in SOD CHLORIDE 0.9% 250 ML IVPB ONE (11:30)
[2016-05-16] MEDS ORDERED: LIDOCAINE 1% (MPF) 30 ML INJ ONE (12:01)
[2016-05-16] MEDS ORDERED: LIDOCAINE 1% (MPF) 30 ML INJ INJ ONE (12:55)
[2016-05-16] MEDS ORDERED: PROPOFOL 20 ML ONE (13:09)
[2016-05-16] MEDS ORDERED: LIDOCAINE 2% (SDV) 5 ML INJ ONE (13:09)
[2016-05-16] MEDS ORDERED: MIDAZOLAM 1 MG/ML 2 ML INJ ONE (13:10)
[2016-05-16] MEDS ORDERED: FENTAnyl 50 MCG/ML VIAL ONE (14:44)
[2016-05-16] MEDS ORDERED: FENTAnyl 50 MCG/ML VIAL IV PRN (15:30)
[2016-05-16] MEDS ORDERED: HYDROmorphONE (0.2 MG/ML) 10ML SYG IV PRN (15:30)
[2016-05-16] MEDS ORDERED: DIPHENHYDRAMINE 50 MG INJ IV PRN (15:30)
[2016-05-16] MEDS ORDERED: PROCHLORPERAZINE 10 MG INJ IV PRN (15:30)
[2016-05-16] MEDS ORDERED: ONDANSETRON 4 MG INJ IV PRN (15:30)
--- NOTE | 2016-05-16 17:00 | PN ---
Date/Time of Note Date/Time of Note DATE: 05/16/16 TIME: 16:57 Assessment/Plan VTE Prophylaxis VTE Prophylaxis Intervention: SCD's Lines/Catheters IV Catheter Type (from Nrsg): Peripheral IV Urinary Cath still in place: No Assessment/Plan Assessment/Plan 1. Left sided headache with MRI abnormality at left occipital lobe, likely migraine, r/o temporal arteritis, on topomax. follow up with biopsy result 2. DM, adjust insulins 3. Dyslipidemia, on statin 4. Hypertension, stable Subjective 24 Hr Interval Summary Free Text/Dictation s/p bilateral temporal artery biopsy Exam/Review of Systems Vital Signs Vitals Vital Signs Date Time Temp Pulse Resp B/P Pulse Ox O2 Delivery O2 Flow Rate FiO2 05/16/16 16:30 98.1 71 124/59 94 Room Air 05/16/16 15:45 12 Intake and Output 05/15/16 05/15/16 05/16/16 15:00 23:00 07:00 Intake Total 1680 ml 950 ml Balance 1680 ml 950 ml Exam Constitutional: alert, oriented, well developed Psych: nl mood/affect, no complaints Eyes: EOMI, nl conjunctiva, nl lids ENMT: nl external ears & nose, nl lips & teeth, nl nasal mucosa & septum Neck: non-tender, supple Respiratory: clear to auscultation, normal air movement, No congested cough, No crackles/rales, No diminished breath sounds, No intercostal retraction, No labored breathing, No respirations, No tactile fremitus, No wheezing Cardiovascular: nl pulses, regular rate and rhythm, No S3, No S4, No bruits, No diastolic murmur, No edema, No gallop, No irregular rhythm, No jugular venous distention (JVD), No murmurs/extra sounds, No rub, No systolic murmur Gastrointestinal: nl liver, spleen, non-tender, soft, No ascites, No bowel sounds, No distended, No firm, No hepatomegaly, No mass , No rebound or guarding, No splenomegaly, No surgical scars, No tender Musculoskeletal: nl extremities to inspection Neurological: GENETICS NURSE II-XII intact, nl mental status, nl speech, nl strength Skin: nl turgor, rash or lesions Lymph: nl lymph nodes Results Result Diagram: 05/13/165 1/29/17 0445 Results 24 hrs Laboratory Tests Test 05/15/16 21:26 05/16/16 02:11 05/16/16 07:55 05/16/16 11:19 Bedside Glucose 297 H 170 150 136 Test 05/16/16 16:28 Bedside Glucose 113 Medications Medications Current Medications Lorazepam (Ativan) 0.5 mg Q6H PRN IV ANXIETY; Start 05/07/16 at 20:30 Ondansetron HCl (Zofran Inj) 4 mg Q6H PRN IV NAUSEA AND/OR VOMITING; Start at 20:30 Aspirin (Aspirin) 81 mg DAILY PO Last administered on 05/15/16 08:40; Admin Dose 81 MG; Start 05/08/16 at 09:00 Nitroglycerin (Nitroglycerin (Sl Tab) 0.4 Mg) 1 tab Q5M PRN SL CHEST PAIN; Start 05/07/16 at 20:30 Acetaminophen (Tylenol Tab) 650 mg Q6H PRN PO PAIN LEVEL 1-3 OR FEVER Last administered on 05/10/16 22:06; Admin Dose 650 MG; Start 05/07/16 at 20:30 Morphine Sulfate (morphine) 2 mg Q4H PRN IV PAIN LEVEL 7-10 Last administered on 05/16/16 08:17; Admin Dose 2 MG; Start 05/07/16 at 20:30 Docusate Sodium (Colace) 100 mg Q12H PRN PO CONSTIPATION Last administered on 21:22; Admin Dose 100 MG; Start 05/07/16 at 20:30 Famotidine (Pepcid) 20 mg Q12 PO Last administered on 05/16/16 08:14; Admin Dose 20 MG; Start 05/07/16 at 21:00 Hydralazine HCl (Apresoline) 10 mg Q6H PRN IV sbp > 160 Last administered on 04:56; Admin Dose 10 MG; Start 05/07/16 at 20:30 Atorvastatin Calcium (Lipitor) 10 mg QHS PO Last administered on 05/15/16 21: 19; Admin Dose 10 MG; Start 05/07/16 at 21:00 Diagnostic Test (Pha) (Accucheck) 1 ea 02 XX Last administered on 05/16/16 02: 12; Admin Dose 1 EA; Start 05/08/16 at 02:00 Miscellaneous Information 1 ea NOTE XX ; Start 05/07/16 at 21:00 Glucose (Glutose) 15 gm Q15M PRN PO DECREASED GLUCOSE; Start 05/07/16 at 21:00 Glucose (Glutose) 22.5 gm Q15M PRN PO DECREASED GLUCOSE; Start 05/07/16 at 21: 00 Dextrose (D50w Syringe) 25 ml Q15M PRN IV DECREASED GLUCOSE; Start 05/07/16 at 21:00 Dextrose (D50w Syringe) 50 ml Q15M PRN IV DECREASED GLUCOSE; Start 05/07/16 at 21:00 Glucagon (Glucagen) 1 mg Q15M PRN IM DECREASED GLUCOSE; Start 05/07/16 at 21:00 Glucose (Glutose) 15 gm Q15M PRN BUCCAL DECREASED GLUCOSE; Start 05/07/16 at 21 :00 Tramadol HCl (Ultram) 50 mg Q6H PRN PO PAIN Last administered on 05/15/16 00: 21; Admin Dose 50 MG; Start 05/08/16 at 00:30 Meclizine HCl (Antivert) 25 mg TID PO Last administered on 05/16/16 08:14; Admin Dose 25 MG; Start 05/10/16 at 13:00 Insulin Glargine (Lantus) 24 unit QAM SC Last administered on 05/15/16 08:37; Admin Dose 24 UNIT; Start 05/12/16 at 09:00 Topiramate (Topamax) 25 mg QHS PO Last administered on 05/15/16 21:19; Admin Dose 25 MG; Start 05/11/16 at 21:00 Enoxaparin Sodium (Lovenox) 30 mg DAILY SC Last administered on 05/15/16 08:38 ; Admin Dose 30 MG; Start 05/12/16 at 09:00 Magnesium Hydroxide 30 ml 30 ml DAILY PRN PO CONSTIPATION; Start 05/15/16 at 22 :30 Vancomycin HCl (Vancocin) 250 ml @ 125 mls/hr OC IVPB Last administered on 05/16 12:04; Admin Dose 125 MLS/HR; Start 05/16/16 at 11:30; Stop 05/16/16 at 20: 00 WILBERTO HERNANDEZ MD May 16, 2016 17:00
[2016-05-16] MEDS: TOPIRAMATE 25 MG TAB PO SCH (21:16)
[2016-05-16] MEDS: ATORVASTATIN 10 MG TAB PO SCH (21:16)
--- NOTE | 2016-05-16 23:16 | RADRPT ---
PROCEDURE: US bilateral upper extremity arterial system. CLINICAL INDICATION: Bilateral upper extremity pain and swelling. TECHNIQUE: Multiple longitudinal and transverse images of the bilateral upper extremity arterial t ree was obtained with peñaloza scale pulsed Doppler, and color Doppler imaging. COMPARISON: None available FINDINGS: The bilateral subclavian artery, axillary artery, brachial artery, radial artery, and ulnar artery a re all patent. There is no thrombus or occlusion. There is high velocity flow in the left brachial artery which may indicate a 50% stenosis. There is normal triphasic flow throughout bilaterally. Peak systolic velocities are as follows: Right: Subclavian: 85 cm/sec Axillary: 93 cm/sec Brachial: 119 cm/sec Radial: 105 cm/sec Ulnar: 84 cm/sec Left: Subclavian: 137 cm/sec Axillary: 80 cm/sec Brachial: 178 cm/sec Radial: 47 cm/sec Ulnar: 50 cm/sec IMPRESSION: 1. High velocity flow in the left brachial artery which may indicate a 50% stenosis. 2. Otherwise unremarkable bilateral upper extremity arterial Doppler. RPTAT: QQ .Kranthi Villa MD, MD Date Time Electronically viewed and signed by .Kranthi Villa MD, on 05/16/2016 23:16 .R/
[2016-05-17] MEDS: ACCUCHECK AT 2AM (Patients on SS coverage) XX SCH (02:02)
[2016-05-17 07:26] VITALS: BP 102/58; RESP 18
[2016-05-17] MEDS: ASPIRIN 81 MG TAB PO SCH (08:44)
[2016-05-17] MEDS: MECLIZINE 25 MG TAB PO SCH ×2 (08:44→12:14)
[2016-05-17] MEDS: FAMOTIDINE 20 MG TAB PO SCH (08:44)
[2016-05-17] MEDS: ENOXAPARIN 30 MG/0.3 ML SYG SC SCH (08:47)
[2016-05-17] MEDS: INSULIN ASPART [NOVOLOG] 3 ML PEN SC SCH ×4 (08:48→12:16)
[2016-05-17] MEDS: INSULIN GLARGINE [LANtus] 3 ML PEN SC SCH (08:49)
[2016-05-17] MEDS: morphine 2 MG INJ IV PRN (08:50)
--- NOTE | 2016-05-17 12:09 | CONS ---
Date/Time of Note Date/Time of Note DATE: 05/17/16 TIME: 12:07 Consult Date/Type/Reason Admit Date/Time May 07, 2016 at 19:53 Initial Consult Date 05/08/16 Type of Consultation: Neurology Reason for Consultation headache blurred vision vertigo Ordering Provider: SHONDA ESPINOSA MD Subjective s/p temporal artery b/l biopsy on 05/16 she complains of back pain, persistent dizziness blurred vision has been the same since admission, no worsening headaches alleviated with morphine Objective Vital Signs Date Time Temp Pulse Resp B/P Pulse Ox O2 Delivery O2 Flow Rate FiO2 05/17/16 07:26 97.9 79 18 102/58 95 05/16/16 16:30 Room Air Intake and Output 05/16/16 05/16/16 05/17/16 15:00 23:00 07:00 Intake Total 800 ml 120 ml 850 ml Output Total 5 ml Balance 795 ml 120 ml 850 ml Results/Medications Result Diagram: 05/13/16 0445 05/13/16 0445 Results 24 hrs Laboratory Tests Test 05/16/16 16:28 05/16/16 21:20 05/17/16 02:01 05/17/16 08:14 Bedside Glucose 113 214 191 160 Test 05/17/16 11:35 Bedside Glucose 223 H Medications Current Medications Lorazepam (Ativan) 0.5 mg Q6H PRN IV ANXIETY; Start 05/07/16 at 20:30 Ondansetron HCl (Zofran Inj) 4 mg Q6H PRN IV NAUSEA AND/OR VOMITING; Start at 20:30 Aspirin (Aspirin) 81 mg DAILY PO Last administered on 05/17/16 08:44; Admin Dose 81 MG; Start 05/08/16 at 09:00 Nitroglycerin (Nitroglycerin (Sl Tab) 0.4 Mg) 1 tab Q5M PRN SL CHEST PAIN; Start 05/07/16 at 20:30 Acetaminophen (Tylenol Tab) 650 mg Q6H PRN PO PAIN LEVEL 1-3 OR FEVER Last administered on 05/10/16 22:06; Admin Dose 650 MG; Start 05/07/16 at 20:30 Morphine Sulfate (morphine) 2 mg Q4H PRN IV PAIN LEVEL 7-10 Last administered on 05/17/16 08:50; Admin Dose 2 MG; Start 05/07/16 at 20:30 Docusate Sodium (Colace) 100 mg Q12H PRN PO CONSTIPATION Last administered on 21:22; Admin Dose 100 MG; Start 05/07/16 at 20:30 Famotidine (Pepcid) 20 mg Q12 PO Last administered on 05/17/16 08:44; Admin Dose 20 MG; Start 05/07/16 at 21:00 Hydralazine HCl (Apresoline) 10 mg Q6H PRN IV sbp > 160 Last administered on 04:56; Admin Dose 10 MG; Start 05/07/16 at 20:30 Atorvastatin Calcium (Lipitor) 10 mg QHS PO Last administered on 05/16/16 21:16 ; Admin Dose 10 MG; Start 05/07/16 at 21:00 Diagnostic Test (Pha) (Accucheck) 1 ea 02 XX Last administered on 05/17/16 02: 02; Admin Dose 1 EA; Start 05/08/16 at 02:00 Miscellaneous Information 1 ea NOTE XX ; Start 05/07/16 at 21:00 Glucose (Glutose) 15 gm Q15M PRN PO DECREASED GLUCOSE; Start 05/07/16 at 21:00 Glucose (Glutose) 22.5 gm Q15M PRN PO DECREASED GLUCOSE; Start 05/07/16 at 21: 00 Dextrose (D50w Syringe) 25 ml Q15M PRN IV DECREASED GLUCOSE; Start 05/07/16 at 21:00 Dextrose (D50w Syringe) 50 ml Q15M PRN IV DECREASED GLUCOSE; Start 05/07/16 at 21:00 Glucagon (Glucagen) 1 mg Q15M PRN IM DECREASED GLUCOSE; Start 05/07/16 at 21:00 Glucose (Glutose) 15 gm Q15M PRN BUCCAL DECREASED GLUCOSE; Start 05/07/16 at 21 :00 Tramadol HCl (Ultram) 50 mg Q6H PRN PO PAIN Last administered on 05/15/16 00: 21; Admin Dose 50 MG; Start 05/08/16 at 00:30 Meclizine HCl (Antivert) 25 mg TID PO Last administered on 05/17/16 08:44; Admin Dose 25 MG; Start 05/10/16 at 13:00 Insulin Glargine (Lantus) 24 unit QAM SC Last administered on 05/17/16 08:49; Admin Dose 24 UNIT; Start 05/12/16 at 09:00 Topiramate (Topamax) 25 mg QHS PO Last administered on 05/16/16 21:16; Admin Dose 25 MG; Start 05/11/16 at 21:00 Enoxaparin Sodium (Lovenox) 30 mg DAILY SC Last administered on 05/17/16 08:47 ; Admin Dose 30 MG; Start 05/12/16 at 09:00 Magnesium Hydroxide (Milk Of Mag) 30 ml DAILY PRN PO CONSTIPATION Last administered on 05/16/16 21:54; Admin Dose 30 ML; Start 05/15/16 at 22:30 Assessment/Plan Chief Complaint/Hosp Course 66 year old female with history of uncontrolled diabetes, hypertension presenting with vertigo, blurred vision admitted for further work up. CTH on admission negative. MRI Brain shows increased FLAIR signal in left occipital cortex, no significant restricted diffusion. consideration on official report read subacute ischemic changes. changes also seen on FLAIR in posterior region could represent PRES - posterior reversible encephalopathy ESR elevated to: 65 repeat ESR elevated to: 113 CRP: 2.6 continue on Topiramate 25 mg po qhs, Meclizine 25 mg q8h for vertigo Temporal artery biopsy done on 05/16 awaiting preliminary biopsy results fur further planning Problems: SHAE CASILLAS MD May 17, 2016 12:09
[2016-05-17] MEDS ORDERED: HYDR-906 PO (16:17)
[2016-05-17] MEDS ORDERED: TOPI25TA38 PO (16:17)
--- NOTE | 2016-05-17 16:22 | DS ---
Date/Time of Note Date/Time of Note DATE: 05/17/16 TIME: 16:18 Discharge Summary Admission/Discharge Info Admit Date/Time May 07, 2016 at 19:53 Discharge Date/Time Final Diagnosis 1. Left sided headache with MRI abnormality at left occipital lobe, likely migraine, on topamax for prophylaxis 2. DM, adjust insulins 3. Dyslipidemia, on statin 4. Hypertension, stable Patient Condition: Stable Hx of Present Illness 66 yo female with past medical history type II DM, essential hypertension, who presents dizziness and diplopia. 8 days ago, she had gone to [facility] , she had similar episode, had a CT scan of brain that was negative. Labs at that time were negative. Subsequently, the patient's symptoms did not resolve, has orthostatic changes, headache, blurriness in vision, double vision, nausea with 3 episodes NBNB vomitus, constipation, and shortness of breath. Otherwise denies any palpitations, chest pain, syncopal episodes, no other constitutional symptoms. Patient was transferred here to [facility] for insurances. Hospital Course MRI of head revealed left occipital lobe abnormality. Migraine headache is considered. To r/o temporal arteritis, bilateral temporal artery biopsy is done that showed no evidence of arteritis. Patient will be discharged with topamax for migraine prophylaxis. She needs to follow up with neurology closely Home Meds Active Scripts Hydrocodone/Acetaminophen ([place] 5-325 Tablet) 1 Each Tablet, 1 EACH PO Q4H, # 30 TAB Prov:WILBERTO HERNANDEZ MD 05/17/16 Topiramate* (Topamax*) 25 Mg Tablet, 25 MG PO QHS for 30 Days, TAB Prov:WILBERTO HERNANDEZ MD 05/17/16 Reported Medications Tramadol HCl (Tramadol HCl) 50 Mg Tablet, 50 MG PO Q6H Y for PAIN, #120 TAB 05/08/16 Aspirin* (Aspirin* EC) 81 Mg Tablet.dr, 81 MG PO DAILY, TAB 05/07/16 Atorvastatin Calcium (Atorvastatin Calcium) 10 Mg Tablet, 10 MG PO QHS, #30 TAB 05/07/16 Insulin Glargine* (Lantus*) 100 Unit/Ml Soln, 30 UNIT SC QAM, #1 VIAL 05/07/16 Glipizide* (Glipizide*) 10 Mg Tablet, 10 MG PO AC BREAKFAST DINNER, TAB 05/07/16 Metformin Hcl* (Metformin Hcl*) 1,000 Mg Tablet, 1000 MG PO WITH BREAKFAST, #30 TAB 05/07/16 Follow-up Plan follow up with PCP and neurology in 1 week Pending Labs Laboratory Tests Test 05/16/16 16:28 05/16/16 21:20 05/17/16 02:01 05/17/16 08:14 Bedside Glucose 113mg/dL (70-220) 214mg/dL (70-220) 191mg/dL (70-220) 160mg/dL (70-220) Test 05/17/16 11:35 Bedside Glucose 223mg/dL (70-220) WILBERTO HERNANDEZ MD May 17, 2016 16:22
--- NOTE | 2016-05-17 16:34 | PN ---
Date/Time of Note Date/Time of Note DATE: 05/17/16 TIME: 16:31 Assessment/Plan Lines/Catheters IV Catheter Type (from [facility]): Saline Lock Phillips in Place (from [facility]): No Assessment/Plan Chief Complaint/Hosp Course -Temporal arteritis. It seems that the patient has had some findings with suggestions of temporal arthritis, specifically with recent vision changes and elevated ESR levels and CRP levels. S/P bilateral temporal artery biopsies -Optimize vascular status (Blood pressure meds and nutrition, exercise, sugar control, weight loss, antiplatelets). -Discussed findings with plan and management with the patient, she understands. -Thank you for allowing us to participate in the care of your patient. Please call with any questions. -I would also recommend obtaining a carotid ultrasound to better delineate her carotid anatomy. Problems: Subjective 24 Hr Interval Summary no new vascular events overnight, minimal headache Exam/Review of Systems Vital Signs Vitals Vital Signs Date Time Temp Pulse Resp B/P Pulse Ox O2 Delivery O2 Flow Rate FiO2 05/17/16 07:26 97.9 79 18 102/58 95 05/16/16 16:30 Room Air Intake and Output 05/16/16 05/16/16 05/17/16 15:00 23:00 07:00 Intake Total 800 ml 120 ml 850 ml Output Total 5 ml Balance 795 ml 120 ml 850 ml Exam Free Text/Dictation GENERAL: Alert and oriented x3, no apparent distress. HEAD: Incisions with dressings intact and dry, incisional tenderness PULMONARY: Clear to auscultation bilaterally. CARDIOVASCULAR: S1, S2 present. ABDOMEN: Soft, nontender, nondistended. Bowel sounds positive. Truncal obesity. Results Result Diagram: 05/13/16 0445 05/13/16 0445 MYRA SERRA MD May 17, 2016 16:34
--- NOTE | 2016-05-17 18:21 | OPR ---
DATE OF OPERATION: 05/16/2016 SURGEON: Barrie Gotti MD PREOPERATIVE DIAGNOSIS: Temporal arteritis. POSTOPERATIVE DIAGNOSIS: Temporal arteritis. COMPLICATIONS: None. HEPARIN: None. SPECIMEN: Right and left temporal artery biopsies were sent for pathology. BLEEDING: Minimal. INDICATIONS: This is a 66-year-old female who presented with a significant headache with left-sided vision blurriness and elevated sedimentation rate, and CRP levels. Suspicion of temporal arteritis was there, for he patient had findings of decreased left upper extremity pulses compared to the rig ht. Risks, benefits and alternatives were discussed with the patient and complications such as blee ding, thrombosis, nerve injury, myocardial infarction, stroke, and infection were discussed and pat ient agreed to proceed. DESCRIPTION OF PROCEDURE: Patient was brought into the operating room table, placed in supine posit ion. Preoperative antibiotics were given. Appropriate local sedation, moderate sedation was provid ed by anesthesia. The patient tolerated that well. The bilateral temporal areas were prepped and d raped in the usual standard sterile fashion. Using the Doppler, the temporal artery was identified in the temporal area of the left side. At this point, using 1% lidocaine, the area was anesthetized . Using a #15 blade, a 2 cm skin incision was made over the temporal region. This was deepened thr ough the subcutaneous tissue. Using Metzenbaum scissors, we identified the fascia and that was open ed. Femoral artery was then identified and isolated for a segment of 2 cm. This area was then liga nayeli proximal and distally and the specimen was sent for pathology. Using a 4-0 Monocryl suture, the skin incision was closed and Steri-Strips and Mastisol were applied. At this point, attention was turned to the right temporal area in which we identified the temporal artery in the temporal region using a Doppler. Once this was identified, I went ahead and anesthetized the area with 1% lidocaine . Using a # 15 blade, the skin incision was made, deepened to subcutaneous tissue. Hemostasis was achieved. At this point, the fascia was dissected using Metzenbaum scissors and the temporal artery was identified. A 2 cm segment of the temporal artery was then identified and ligated proximally a nd distally. The specimen was then sent for pathology. At this point, hemostasis was checked which was achieved. Using a 4-0 Monocryl suture, the skin incision was then closed. At this point, [place] ri-Strips and Mastisol were applied. Patient tolerated the procedure well and was taken to postane sthesia care in stable condition. All instruments, sponges, needles and catheters were correct x2. Dictated By: BARRIE SIMPSON/SUSAN Conf#: [id number] DID#: [id number]
== END 2016-05-17 17:02 | disposition home or self-care (01) | DRG 38 ==
LOC: E/R 19:12 → TEL 19:53 → PP2 05-10 19:31
PROVIDERS: ADMIT Student in an Organized Health Care Education/Training Program; ATTEND Student in an Organized Health Care Education/Training Program
PROC: 03B Upper Arteries, Excision (ICD-10-PCS; 2016-05-16)
PROC: 03BT0ZZ Excision of Left Temporal Artery, Open Approach (ICD-10-PCS; principal; 2016-05-16 12:00)
DX: G43.109 Migraine with aura, not intractable, without status migrainosus (principal); Z68.41 Body mass index [BMI] 40.0-44.9, adult; E11.65 Type 2 diabetes mellitus with hyperglycemia; I10 Essential (primary) hypertension; R42 Dizziness and giddiness; H53.8 Other visual disturbances; E78.5 Hyperlipidemia, unspecified; R11.2 Nausea with vomiting, unspecified; M54.9 Dorsalgia, unspecified; E66.01 Morbid (severe) obesity due to excess calories
CPT/HCPCS: 36415; 70544; 70549; 70551; 71010; 80048; 80061; 81001; 81003; 82550; 82553; 82962; 83036; 83735; 84100; 84443; 84484; 85025; 85610; 85651; 85730; 86140; 88305; 88313; 93306; 93923; 97116; 97162; 97530; J0360; J1170; J1650; J1815; J2250; J2270; J2405; J3010; J3370; J3475